=== PATIENT | female | born 1995 | race African-American/Black ===

== ENCOUNTER 2017-08-20 22:38 | Emergency (ER) | payer OTHER ==
--- NOTE | 2017-08-20 23:46 | RADIOLOGY REPORT (SQ) ---
EXAM DESCRIPTION: CHEST PA/LAT COMPLETED DATE/TIME: 08/20/2017 11:24 pm REASON FOR STUDY: chest pain COMPARISON: 01/28/2014 EXAM PARAMETERS: NUMBER OF VIEWS: two views TECHNIQUE: Digital Frontal and Lateral radiographic views of the chest acquired. RADIATION DOSE: NA LIMITATIONS: none FINDINGS: LUNGS AND PLEURA: No acute opacities, masses or pneumothorax. No pleural effusion. MEDIASTINUM AND HILAR STRUCTURES: No masses or contour abnormalities. HEART AND VASCULAR STRUCTURES: Heart normal size. No evidence for failure. BONES: No acute findings. HARDWARE: None in the chest. OTHER: No other significant finding. IMPRESSION: NO SIGNIFICANT RADIOGRAPHIC FINDING IN THE CHEST. TECHNICAL DOCUMENTATION: JOB ID: [id number] [id number] 2010 [employer]- All Rights Reserved Reading location - IP/workstation name: [email or web address]
--- NOTE | 2017-08-21 00:22 | ER Document Report ---
ED General - General Chief Complaint: Chest Pain Stated Complaint: CHEST PAIN Time Seen by Provider: 08/20/17 23:10 Notes: The patient is a 22-year-old female, no past medical history, presents with right upper chest pain and feeling 2 lumps in her breast over the past 2 days. Patient cannot remember her last menstrual period. She denies shortness of breath, leg swelling, hemoptysis, OCP use, dyspnea on exertion, worsening chest pain on exertion, back pain, numbness, tingling or injury. TRAVEL OUTSIDE OF THE [place] IN LAST 30 DAYS: No - Related Data Allergies/Adverse Reactions: No Known Allergies Allergy (Verified 08/21/17 00:27) Past Medical History - General Information source: Patient - Social History Smoking Status: Never Smoker Chew tobacco use (# tins/day): No Frequency of alcohol use: None Drug Abuse: None Family History: Reviewed & Not Pertinent Patient has suicidal ideation: No Patient has homicidal ideation: No Pulmonary Medical History: Reports: Hx Asthma Renal/ Medical History: Denies: Hx Peritoneal Dialysis - Immunizations Immunizations up to date: Yes Hx Diphtheria, Pertussis, Tetanus Vaccination: Yes Review of Systems - Review of Systems Notes: REVIEW OF SYSTEMS: CONSTITUTIONAL: -fevers, -chills EENT: -eye pain, -difficulty swallowing, -nasal congestion CARDIOVASCULAR: +chest pain, -syncope. RESPIRATORY: -cough, -SOB GASTROINTESTINAL: -abdominal pain, -nausea, -vomiting, -diarrhea GENITOURINARY: -dysuria, -hematuria MUSCULOSKELETAL: -back pain, -neck pain SKIN: -rash or skin lesions. HEMATOLOGIC: -easy bruising or bleeding. LYMPHATIC: -swollen, enlarged glands. NEUROLOGICAL: -altered mental status or loss of consciousness, -headache, - neurologic symptoms PSYCHIATRIC: -anxiety, -depression. ALL OTHER SYSTEMS REVIEWED AND NEGATIVE. Physical Exam - Vital signs Vitals: Resp Pulse Ox 17 97 08/20/17 23:05 08/20/17 23:05 - Notes Notes: PHYSICAL EXAMINATION: GENERAL: Well-appearing, well-nourished and in no acute distress. HEAD: Atraumatic, normocephalic. EYES: Pupils equal round and reactive to light, extraocular movements intact, sclera anicteric, conjunctiva are normal. ENT: nares patent, oropharynx clear without exudates. Moist mucous membranes. NECK: Normal range of motion, supple without lymphadenopathy BREAST EXAM (chaperoned by JAMES Petres): Two small lumps in right breast at 11 o' clock position LUNGS: Breath sounds clear to auscultation bilaterally and equal. No wheezes rales or rhonchi. HEART: Regular rate and rhythm without murmurs ABDOMEN: Soft, nontender, normoactive bowel sounds. No guarding, no rebound. No masses appreciated. EXTREMITIES: Normal range of motion, no pitting or edema. No cyanosis. NEUROLOGICAL: Cranial nerves grossly intact. Normal speech, normal gait. Normal sensory and motor exams. PSYCH: Normal mood, normal affect. SKIN: Warm, Dry, normal turgor, no rashes or lesions noted. Course - Re-evaluation Re-evalutation: Patient appears well. She is more concerned about her 2 small right upper breast lumps. Instructed her that this is most likely related to fibrocystic changes due to her age, only two days of symptoms and no history of breast cancer in her family. Will start her on anti-inflammatories and have her follow -up with her primary care physician for recheck of her symptoms. Chest x-ray and EKG obtained due to complaints of chest pain, but these do not show acute findings. Her HEART score is 0 and she is PERC negative. - Vital Signs Vital signs: Temp Pulse Resp BP Pulse Ox 98.5 F 15 107/78 97 08/21/17 00:35 08/21/17 00:35 08/21/17 00:36 08/21/17 00:35 - Diagnostic Test Radiology reviewed: Image reviewed, Reports reviewed Radiology results interpreted by me: CXR: NAD - EKG Interpretation by Me EKG shows normal: Sinus rhythm, Cort[place], Intervals, QRS Complexes, ST-T Waves Rate: Normal Discharge - Discharge Clinical Impression: Breast lump in female Chest pain Qualifiers: Chest pain type: unspecified Qualified Code(s): R07.9 - Chest pain, unspecified Condition: Stable Disposition: HOME, SELF-CARE Additional Instructions: Your breast lumps are most likely related to normal hormone changes, but have this rechecked by your primary care physician next week. You may take Motrin and use heating pads to help with any pain. CHEST PAIN OF UNCLEAR CAUSE: The exact cause of your chest pain isn't clear. Fortunately, there is no evidence of a dangerous medical condition. Further testing may be required to find the source of the pain. Most often, we find that this pain is coming from the chest wall -- the muscles or rib joints in the chest. But chest pain can come from the lung and lung lining, the esophagus, the heart valves or heart lining, and even the stomach or gallbladder. Rest. Eat lightly until the pain is gone. We may prescribe medicine for pain and inflammation. You should call the physician immediately if the pain radiates to the shoulder, jaw or arms; if you start to run a fever or develop a cough; or if you develop shortness of breath, or other new or alarming symptoms. NORMAL EXAM AND WORKUP: At this time, your examination and workup show no significant abnormality. No significant abnormal physical findings were noted. All laboratory, EKG, and imaging (x-ray, CT scans, ultrasound) studies that were ordered show no significant abnormality. Although your examination and all studies that were ordered showed no significant abnormal finding, there are no examinations and no studies that are 100% accurate. There is always the possibility that some abnormality could exist and not be detected with physical examination or within the limits and capabilities of laboratory and other studies. You should return or follow up as you were instructed on your visit today for further evaluation if your symptoms do not resolve. CHEST WALL PAIN: Your chest pain may be coming from the chest wall. This is often caused by straining the muscles or joints in the chest during physical activity, direct trauma, coughing, or vigorous vomiting. Persons with arthritis are especially prone to this type of pain, due to inflammation of the cartilage joints near the breast bone. Occasionally, no cause can be found. Rest from strenuous physical activity. This kind of chest pain is usually made worse by movement of the chest. Depending on the symptoms, we may prescribe medicine for pain, muscle relaxation, and antiinflammatory effects. If the pain is new, and seems to be due to muscle strain, cold packs can help. Otherwise, apply gentle warmth to the painful area for 15 minutes every hour or two. You should call contact the doctor immediately if things change. Further evaluation is needed if you develop a fever or cough, if the nature of the pain changes, or if you become short of breath. FOLLOW-UP CARE: If you have been referred to a physician for follow-up care, call the physician s office for an appointment as you were instructed or within the next two days. If you experience worsening or a significant change in your symptoms, notify the physician immediately or return to the Emergency Department at any time for re-evaluation. Referrals: [facility] [Outside] - Follow up as needed
[2017-08-21 00:50] VITALS: BP 107/78
--- NOTE | 2017-08-21 10:37 | EKG REPORT ---
SEVERITY:- NORMAL ECG - SINUS RHYTHM : Confirmed by: Darrius Escobedo 21-Aug-2017 10:36:48
== END 2017-08-21 00:40 | disposition home or self-care (01) ==
LOC: ER 22:38
DX: N63.10 Unspecified lump in the right breast, unspecified quadrant (principal); R07.9 Chest pain, unspecified
CPT/HCPCS: 71046; 81025; 93005; 93010; 99285

== ENCOUNTER → 2017-11-15 | Outpatient (CLI) | payer BC ==
[2017-11-15 19:25] LABS: BACTERIA (WET MOUNT) 4+ BACTERIA SEEN; EPITHELIALS (WET MOUNT) 3+ EPITHELIALS SEEN; T.VAGINALIS (WET MOUNT) NO TRICHOMONAS SEEN; WBCS (WET MOUNT) 2+ WBCS SEEN; YEAST (WET MOUNT) YEAST SEEN
[2017-11-15 20:48] LABS: CHLAM PCR NOT DETECTED (NOT DETECT); GON PCR NOT DETECTED (NOT DETECT)
== END ==
LOC: LAB 19:09
PROVIDERS: ATTEND Emergency Medicine
DX: N89.8 Other specified noninflammatory disorders of vagina (principal); R30.0 Dysuria
CPT/HCPCS: 87086; 87088; 87186; 87210; 87491; 87591

== ENCOUNTER 2017-11-16 00:36 | Emergency (ER) | payer BC ==
[2017-11-16] MEDS ORDERED: LIDOCAINE 1% INJ-PF (10 MG/ML) 30 ML SDV INFIL ONE (01:14)
[2017-11-16] MEDS ORDERED: AZITHROMYCIN 250 MG TABLET PO ONE (01:14)
[2017-11-16] MEDS ORDERED: CEFTRIAXONE INJ 250 MG VIAL IM ONE (01:14)
--- NOTE | 2017-11-16 01:17 | ER Document Report ---
ED GI/ - General Chief Complaint: Vaginal Discharge Stated Complaint: VAGINAL DISCOMFORT Time Seen by Provider: 11/16/17 01:14 Mode of Arrival: Ambulatory Information source: Patient TRAVEL OUTSIDE OF THE [place] IN LAST 30 DAYS: No - HPI Patient complains to provider of: Vaginal pain Notes: 11/16/17 01:15 Patient is here with complaints of vaginal itching and burning with urination the last several days. No vaginal discharge. Occasional she has left lower abdominal pain but denies any pain now. No fever. No nausea, vomiting, diarrhea. No chest pain shortness of breath. No rash. She is sexually active but with the same partner. She has a prior history of sexually transmitted infections. She denies any hematuria. No other complaints at this time. Normal menstrual period was November 06. - Related Data Allergies/Adverse Reactions: No Known Allergies Allergy (Verified 08/21/17 00:27) Past Medical History - Social History Smoking Status: Unknown if Ever Smoked Family History: Reviewed & Not Pertinent Pulmonary Medical History: Reports: Hx Asthma Renal/ Medical History: Denies: Hx Peritoneal Dialysis - Immunizations Immunizations up to date: Yes Hx Diphtheria, Pertussis, Tetanus Vaccination: Yes Review of Systems - Review of Systems -: Yes All other systems reviewed and negative Physical Exam - Notes Notes: GENERAL: alert, cooperative, nontoxic, no distress. HEAD: normocephalic, atraumatic EYES: conjunctiva pink without discharge, no external redness or swelling. EARS: no external swelling, no external redness NOSE: atraumatic, no external swelling MOUTH/THROAT: mucous membranes moist and pink, posterior pharynx without erythema, swelling, exudate. No trismus or drooling. NECK: soft, supple, full range of motion, no meningismus. CHEST: no distress, lungs clear and equal throughout. No wheezing, rales, rhonchi. CARDIAC: regular rate and rhythm, no murmur, normal capillary refill, normal pulses. No peripheral edema noted. ABDOMEN: Soft, nontender. BACK: full range of motion, no CVA tenderness. EXTREMITIES: full range of motion of all extremities. No redness, no swelling. NEURO: alert and oriented x 3, no focal deficits, full range of motion of all extremities. PYSCH: appropriate mood, affect. Patient is cooperative. SKIN: pink, warm, dry, no rash. : Performed with female signal operator linguist at the bedside. No external lesions. Thin white vaginal discharge present. Cervix was closed. No cervical lesions. No bleeding. No cervical motion tenderness, no adnexal tenderness or masses on Course - Re-evaluation Re-evalutation: 11/16/17 02:06 Patient is nontoxic-appearing with stable vitals. The patient is here with complaints of vaginal itching and irritation. On exam she has no significant abnormal findings. Urinalysis is negative. Her is negative. Wet prep is negative. Gonorrhea chlamydia cultures are currently pending. The patient was treated with Rocephin and Zithromax here in the emergency department. She will be discharged home with instruction to follow-up with her primary care doctor at the next available appointment for recheck. Follow-up sooner for worsening pain, fever, abdominal pain, persistent vomiting, or for any further concerns. She was instructed to follow-up with the health department or her primary care doctor for HIV and syphilis testing. The patient is noted to have elevated blood pressure during today's emergency department visit. The patient was informed of this finding. The patient was instructed that this may be related to pre-hypertension and requires further evaluation with a primary care provider. The patient has no hypertensive symptoms at this time. The patient's emergency department workup and current diagnosis were explained to the patient and or family. Follow-up instructions were provided. Medications if prescribed were discussed. Instructions for when to return to the emergency department including specific worrisome symptoms were discussed with the patient and/or family. Discharge - Discharge Clinical Impression: Vaginitis Qualifiers: Chronicity: acute Qualified Code(s): N76.0 - Acute vaginitis Condition: Stable Disposition: HOME, SELF-CARE Instructions: Vaginitis ([facility]) Additional Instructions: Follow-up with your primary care doctor, CORK PRESSING MACHINE OPERATOR or the health department for HIV and syphilis testing. Follow-up sooner for worsening pain, fever, numbness , tingling, weakness, persistent vomiting, or for any further concerns. Your blood pressure was elevated during today's visit. Have this rechecked with your doctor. Forms: Elevated Blood Pressure, Smoking Cessation Education Referrals: ESSENCE DODGE MD [ACTIVE STAFF] - Follow up as needed
[2017-11-16 01:48] LABS: RBCS (WET MOUNT) NO RBCS SEEN; T.VAGINALIS (WET MOUNT) NO TRICHOMONAS SEEN; WBCS (WET MOUNT) FEW WBCS SEEN; YEAST (WET MOUNT) NO YEAST SEEN
[2017-11-16 01:51] LABS: APPEARANCE,URINE CLEAR; BILIRUBIN,URINE NEGATIVE (NEGATIVE); COLOR,URINE STRAW; GLUCOSE, URINE NEGATIVE (NEGATIVE); KETONES,URINE NEGATIVE (NEGATIVE); LEUKOCYTE ESTERASE,URINE NEGATIVE (NEGATIVE); NITRITE,URINE NEGATIVE (NEGATIVE); PROTEIN,URINE NEGATIVE (NEGATIVE); URINE SPECIFIC GRAVITY 1.004; UROBILINOGEN,URINE NEGATIVE mg/dL (<2.0)
[2017-11-16 03:15] LABS: CHLAM PCR NOT DETECTED (NOT DETECT); GON PCR NOT DETECTED (NOT DETECT)
[2017-11-16 03:21] VITALS: BP 127/55
== END 2017-11-16 03:05 | disposition home or self-care (01) ==
LOC: ER 00:36
DX: N76.0 Acute vaginitis (principal); R30.0 Dysuria
CPT/HCPCS: 99283; 96372; 87210; 81025; 81001; 87491; 87591; J3490; J0696

== ENCOUNTER 2018-01-29 12:15 | Emergency (ER) | payer BC ==
[2018-01-29 12:30] VITALS: BP 127/72
[2018-01-29 12:49] LABS: APPEARANCE,URINE CLEAR; BILIRUBIN,URINE NEGATIVE (NEGATIVE); COLOR,URINE YELLOW; GLUCOSE, URINE NEGATIVE (NEGATIVE); KETONES,URINE NEGATIVE (NEGATIVE); LEUKOCYTE ESTERASE,URINE NEGATIVE (NEGATIVE); NITRITE,URINE NEGATIVE (NEGATIVE); PROTEIN,URINE NEGATIVE (NEGATIVE); URINE SPECIFIC GRAVITY 1.027; UROBILINOGEN,URINE NEGATIVE mg/dL (<2.0)
--- NOTE | 2018-01-29 13:11 | ER Document Report ---
ED GI/ - General Chief Complaint: Abdominal Pain Stated Complaint: ABDOMINAL PAIN,VAGINAL IRRITATION Time Seen by Provider: 01/29/18 13:06 Notes: Chief complaint: abdominal pain: Abdominal pain History of complain:( obtained from----patient) 22 years old female presents with left lower quadrant abdominal pain and discomfort for the last 3 weeks, crampy in nature. Did not have any bowel movement for the last 2 weeks. No nausea vomiting. Had some dysuria no frequency urgency. Denies any other constitutional symptoms Onset: Gradual Duration: 3 weeks Severity: Mild to moderate Quality: Crampy Context: As above Exacerbating factor and relieving factors: None REVIEW OF SYSTEMS: CONSTITUTIONAL : Denies fever, chills, or sweats. Denies recent illness. EENT: Denies eye, ear, throat, or mouth pain or symptoms. Denies nasal or sinus congestion or discharge. Denies throat, tongue, or mouth swelling or difficulty swallowing. CARDIOVASCULAR: Denies chest pain. Denies palpitations or racing or irregular heart beat. Denies ankle edema. RESPIRATORY: Denies cough, cold, or chest congestion. Denies shortness of breath, difficulty breathing, or wheezing. GASTROINTESTINAL: Denies distention. Denies nausea, vomiting, or diarrhea. Denies blood in vomitus, stools, or per rectum. Denies black, tarry stools. Denies constipation. GENITOURINARY: Denies difficulty urinating, painful urination, burning, frequency, blood in urine, or discharge. FEMALE GENITOURINARY: Denies vaginal bleeding, heavy or abnormal periods, irregular periods. Denies vaginal discharge or odor. MUSCULOSKELETAL: Denies back or neck pain or stiffness. Denies joint pain or swelling. SKIN: Denies rash, lesions or sores. HEMATOLOGIC : Denies easy bruising or bleeding. LYMPHATIC: Denies swollen, enlarged glands. NEUROLOGICAL: Denies confusion or altered mental status. Denies passing out or loss of consciousness. Denies dizziness or lightheadedness. Denies headache. Denies weakness or paralysis or loss of use of either side. Denies problems with gait or speech. Denies sensory loss, numbness, or tingling. Denies seizures. PSYCHIATRIC: Denies anxiety or stress. Denies depression, suicidal ideation, or homicidal ideation. ALL OTHER SYSTEMS REVIEWED AND NEGATIVE. PHYSICAL EXAMINATION: GENERAL: Well-appearing, well-nourished and in no acute distress. Obesity HEAD: Atraumatic, normocephalic. EYES: Pupils equal round and reactive to light, extraocular movements intact, conjunctiva are normal. ENT: Nares patent, oropharynx clear without exudates. Moist mucous membranes. NECK: Normal range of motion, supple without lymphadenopathy LUNGS: Breath sounds clear to auscultation bilaterally and equal. No wheezes rales or rhonchi. HEART: Regular rate and rhythm without murmurs ABDOMEN: Soft, nontender, nondistended abdomen. No guarding, no rebound. No masses appreciated. Female : deferred Musculoskeletal: Normal range of motion, no pitting or edema. No cyanosis. NEUROLOGICAL: Cranial nerves grossly intact. Normal speech, normal gait. Normal sensory, motor exams PSYCH: Normal mood, normal affect. SKIN: Warm, Dry, normal turgor, no rashes or lesions noted. Dictation was performed using [employer] voice recognition software TRAVEL OUTSIDE OF THE [place] IN LAST 30 DAYS: No - HPI Notes: 01/29/18 13:10 Dictated - Related Data Allergies/Adverse Reactions: No Known Allergies Allergy (Verified 01/29/18 12:57) Past Medical History - Social History Smoking Status: Never Smoker Chew tobacco use (# tins/day): No Frequency of alcohol use: None Drug Abuse: None Lives with: Family Family History: Reviewed & Not Pertinent Patient has suicidal ideation: No Patient has homicidal ideation: No Pulmonary Medical History: Reports: Hx Asthma Renal/ Medical History: Denies: Hx Peritoneal Dialysis - Immunizations Immunizations up to date: Yes Hx Diphtheria, Pertussis, Tetanus Vaccination: Yes Review of Systems - Review of Systems Notes: Dictated Physical Exam - Vital signs Vitals: Temp Pulse Resp BP Pulse Ox 98.2 F 72 18 127/72 H 100 01/29/18 12:29 01/29/18 12:29 01/29/18 12:29 01/29/18 12:29 01/29/18 12:29 - Notes Notes: Dictated Course - Vital Signs Vital signs: Temp Pulse Resp BP Pulse Ox 98.2 F 72 18 127/72 H 100 01/29/18 12:29 01/29/18 12:29 01/29/18 12:29 01/29/18 12:29 01/29/18 12:29 Discharge - Discharge Clinical Impression: Constipation by delayed colonic transit Abdominal pain Qualifiers: Abdominal location: left lower quadrant Qualified Code(s): R10.32 - Left lower quadrant pain Condition: Fair Disposition: HOME, SELF-CARE Instructions: Bulk Laxatives Prescriptions: Dicyclomine HCl [Bentyl 10 mg Capsule] 1 cap PO TID #30 cap Lactulose 20 gm PO BID #120 ml Referrals: FAUSTINO DIA TIME PIECE REPAIRER [Primary Care Provider] - Follow up as needed
== END 2018-01-29 14:02 | disposition home or self-care (01) ==
LOC: ER 12:15
DX: K59.01 Slow transit constipation (principal); R10.32 Left lower quadrant pain
CPT/HCPCS: 81001; 81025; 99284

== ENCOUNTER 2018-03-10 10:29 | Emergency (ER) | payer BC ==
--- NOTE | 2018-03-10 10:42 | ER Document Report ---
HPI - HPI Patient complains to provider of: Dysuria Onset: This morning Onset/Duration: Gradual Quality of pain: Burning Pain Level: 3 Context: Patient presents complaining of pain with urination that started this morning. Patient also complains of left lower lateral side tenderness off and on this morning. Patient without any fever, nausea, vomiting or diarrhea. Patient denies any concerns about any sexually transmitted infection. No vaginal bleeding or discharge. Patient denies any concerns about . Associated Symptoms: Other - Dysuria. denies: Nonproductive cough, Fever, Nausea, Vomiting Exacerbated by: Denies Relieved by: Denies Similar symptoms previously: Yes Recently seen / treated by doctor: No - ROS ROS below otherwise negative: Yes Systems Reviewed and Negative: Yes All other systems reviewed and negative - CONSTITUTIONAL Constitutional: DENIES: Fever, Chills - GASTROINTESTINAL Gastrointestinal: REPORTS: Abdominal Pain. DENIES: Nausea, Patient vomiting - URINARY Urinary: REPORTS: Dysuria. DENIES: Frequency - REPRODUCTIVE Reproductive: DENIES: : - MUSCULOSKELETAL Musculoskeletal: DENIES: Back Pain - DERM Skin Color: Normal Skin Problems: None Past Medical History - General Information source: Patient - Social History Smoking Status: Never Smoker Frequency of alcohol use: None Drug Abuse: None Occupation: Call center Family History: Reviewed & Not Pertinent Pulmonary Medical History: Reports: Hx Asthma Renal/ Medical History: Denies: Hx Peritoneal Dialysis Surgical Hx: Negative - Immunizations Immunizations up to date: Yes Hx Diphtheria, Pertussis, Tetanus Vaccination: Yes Vertical Provider Document - CONSTITUTIONAL Agree With Documented VS: Yes Exam Limitations: No Limitations General Appearance: WD/WN, No Apparent Distress - INFECTION CONTROL TRAVEL OUTSIDE OF THE [place] IN LAST 30 DAYS: No - HEENT HEENT: Atraumatic, Normocephalic - NECK Neck: Normal Inspection, Supple - RESPIRATORY Respiratory: Breath Sounds Normal, No Respiratory Distress - CARDIOVASCULAR Cardiovascular: Regular Rate, Regular Rhythm - GI/ABDOMEN Gastrointestinal: Abdomen Soft, Abdomen Tender - Mild tenderness left lower lateral pelvic area, No Organomegaly, Normal Bowel Sounds. negative: Abdominal Guarding - BACK Back: Normal Inspection. negative: CVA Tenderness-Right, CVA Tenderness-Left - MUSCULOSKELETAL/EXTREMETIES Musculoskeletal/Extremeties: MAEW, FROM - NEURO Level of Consciousness: Awake, Alert, Appropriate Motor/Sensory: No Motor Deficit - DERM Integumentary: Warm, Dry, No Rash Course - Re-evaluation Re-evalutation: 03/10/18 11:20 Patient's urinalysis reviewed, findings consistent with UTI, no concern for pyelonephritis at this time. Patient afebrile nontoxic in appearance. - Laboratory Laboratory results interpreted by me: 03/10/18 11:20 Labs- Entire Visit 03/10/18 10:49 Urine Color YELLOW Urine Appearance CLOUDY Urine pH 6.0 Ur Specific Rock 1.009 Urine Protein NEGATIVE Urine Glucose (UA) NEGATIVE Urine Ketones NEGATIVE Urine Blood MODERATE H Urine Nitrite NEGATIVE Urine Bilirubin NEGATIVE Urine Urobilinogen NEGATIVE Ur Leukocyte Esterase LARGE H Urine WBC (Auto) 121 Urine RBC (Auto) 1 Urine Bacteria (Auto) TRACE Squamous Epi Cells Auto 2 Urine Mucus (Auto) RARE Urine Ascorbic Acid NEGATIVE Urine HCG, Qual NEGATIVE Discharge - Discharge Clinical Impression: UTI (urinary tract infection) Qualifiers: Urinary tract infection type: site unspecified Hematuria presence: with hematuria Qualified Code(s): N39.0 - Urinary tract infection, site not specified ; R31.9 - Hematuria, unspecified; R31.9 - Hematuria, unspecified Condition: Stable Disposition: HOME, SELF-CARE Instructions: Urinary Tract Infection ([facility]), Urinary Anesthetic Agent ([facility]), Cephalexin ([facility]) Additional Instructions: Return immediately for any new or worsening symptoms Followup with your primary care provider, call tomorrow to make a followup appointment Prescriptions: Cephalexin Monohydrate [Keflex 500 mg Capsule] 500 mg PO Q6H 5 Days capsule Phenazopyridine HCl [Pyridium 200 mg Tablet] 200 mg PO TID #15 tablet Referrals: FAUSTINO DIA NP [Primary Care Provider] - Follow up as needed
[2018-03-10 11:11] LABS: APPEARANCE,URINE CLOUDY; BILIRUBIN,URINE NEGATIVE (NEGATIVE); COLOR,URINE YELLOW; GLUCOSE, URINE NEGATIVE (NEGATIVE); KETONES,URINE NEGATIVE (NEGATIVE); LEUKOCYTE ESTERASE,URINE LARGE (NEGATIVE); NITRITE,URINE NEGATIVE (NEGATIVE); PROTEIN,URINE NEGATIVE (NEGATIVE); URINE SPECIFIC GRAVITY 1.009; UROBILINOGEN,URINE NEGATIVE mg/dL (<2.0)
[2018-03-10] MEDS ORDERED: CEPHALEXIN 500 MG CAPSULE PO ONE (11:19)
[2018-03-10] MEDS ORDERED: PHENAZOPYRIDINE HCL 200 MG TABLET PO ONE (11:19)
[2018-03-10 11:39] VITALS: BP 116/69
== END 2018-03-10 11:39 | disposition home or self-care (01) ==
LOC: ER 10:29
DX: N39.0 Urinary tract infection, site not specified (principal); R31.9 Hematuria, unspecified; J45.909 Unspecified asthma, uncomplicated
CPT/HCPCS: 99283; 81025; 81001; J3490

== ENCOUNTER 2018-05-01 14:16 | Emergency (ER) | payer BC ==
--- NOTE | 2018-05-01 15:29 | ER Document Report ---
ED Medical Screen (RME) - General Chief Complaint: Abdominal Pain Stated Complaint: ABDOMINAL PAIN,VOMITING Time Seen by Provider: 05/01/18 15:23 Mode of Arrival: Ambulatory Information source: Patient Notes: Patient is an otherwise healthy 22-year-old female who presents with chief complaint of low abdominal pain, dysuria, and milky white vaginal discharge since Friday. Patient denies any nausea, vomiting or diarrhea. Patient denies any fever. Exam: Abdomen soft, mildly tender to left suprapubic area. No CVA tenderness. I have greeted and performed a rapid initial assessment of this patient. A comprehensive ED assessment and evaluation of the patient, analysis of test results and completion of the medical decision making process will be conducted by additional ED providers. Dictation of this chart was performed using voice recognition software; therefore, there may be some unintended grammatical errors. TRAVEL OUTSIDE OF THE [place] IN LAST 30 DAYS: No - Related Data Allergies/Adverse Reactions: No Known Allergies Allergy (Verified 03/10/18 10:30) Past Medical History Pulmonary Medical History: Reports: Hx Asthma Renal/ Medical History: Denies: Hx Peritoneal Dialysis - Immunizations Immunizations up to date: Yes Hx Diphtheria, Pertussis, Tetanus Vaccination: Yes Physical Exam - Vital signs Vitals: Temp Pulse Resp BP Pulse Ox 98.2 F 70 20 132/74 H 99 05/01/18 14:40 05/01/18 14:40 05/01/18 14:40 05/01/18 14:40 05/01/18 14:40 Course - Vital Signs Vital signs: Temp Pulse Resp BP Pulse Ox 98.2 F 70 20 132/74 H 99 05/01/18 14:40 05/01/18 14:40 05/01/18 14:40 05/01/18 14:40 05/01/18 14:40 Doctor's Discharge - Discharge Referrals: FAUSTINO DIA NP [Primary Care Provider] - Follow up as needed
[2018-05-01 16:15] LABS: APPEARANCE,URINE CLEAR; BILIRUBIN,URINE NEGATIVE (NEGATIVE); COLOR,URINE YELLOW; GLUCOSE, URINE NEGATIVE (NEGATIVE); KETONES,URINE TRACE mg/dL (NEGATIVE); LEUKOCYTE ESTERASE,URINE NEGATIVE (NEGATIVE); NITRITE,URINE NEGATIVE (NEGATIVE); PROTEIN,URINE NEGATIVE (NEGATIVE); URINE SPECIFIC GRAVITY 1.017; UROBILINOGEN,URINE NEGATIVE mg/dL (<2.0)
[2018-05-01] MEDS ORDERED: AZITHROMYCIN 1 GM SUSP PACKET PO ONE (17:22)
--- NOTE | 2018-05-01 17:22 | ER Document Report ---
ED GI/ - General Chief Complaint: Abdominal Pain Stated Complaint: ABDOMINAL PAIN,VOMITING Time Seen by Provider: 05/01/18 15:23 Mode of Arrival: Ambulatory Notes: Patient is a 22-year-old female presenting to the emergency department complaining of vaginal discharge starting on Friday. Patient states vaginal discharge is white and thick in nature denies any itching states discharge is malodorous. Patient also states she has some dysuria. Patient states she has had intermittent left lower abdominal pain for the last couple of months. States her primary care provider was going to order an outpatient ultrasound to rule out ovarian cyst but she has not gotten that done yet. Patient states she did vomit twice this morning, denies fever, URI symptoms, diarrhea. Patient states she has been able to eat and drink since vomiting episodes. Denies any nausea at this time. Past medical history: None medications: None Allergies: None Patient denies smoking, denies illicit drug use, denies EtOH use. TRAVEL OUTSIDE OF THE [place] IN LAST 30 DAYS: No - Related Data Allergies/Adverse Reactions: No Known Allergies Allergy (Verified 03/10/18 10:30) Past Medical History - General Information source: Patient - Social History Smoking Status: Former Smoker Lives with: Family Family History: Reviewed & Not Pertinent Patient has suicidal ideation: No Patient has homicidal ideation: No Pulmonary Medical History: Reports: Hx Asthma Renal/ Medical History: Denies: Hx Peritoneal Dialysis - Immunizations Immunizations up to date: Yes Hx Diphtheria, Pertussis, Tetanus Vaccination: Yes Review of Systems - Review of Systems Constitutional: See HPI EENT: No symptoms reported Cardiovascular: No symptoms reported Respiratory: No symptoms reported Gastrointestinal: See HPI Genitourinary: See HPI Female Genitourinary: See HPI Musculoskeletal: No symptoms reported Skin: No symptoms reported Hematologic/Lymphatic: No symptoms reported Neurological/Psychological: No symptoms reported Physical Exam - Vital signs Vitals: Temp Pulse Resp BP Pulse Ox 98.2 F 70 20 132/74 H 99 05/01/18 14:40 05/01/18 14:40 05/01/18 14:40 05/01/18 14:40 05/01/18 14:40 - Notes Notes: GENERAL: Alert, interacts well. No acute distress. HEAD: Normocephalic, atraumatic. EYES: Pupils equal, round, and reactive to light. Extraocular movements intact. ENT: Oral mucosa moist, tongue midline. NECK: Full range of motion. Supple. Trachea midline. LUNGS: Clear to auscultation bilaterally, no wheezes, rales, or rhonchi. No respiratory distress. HEART: Regular rate and rhythm. No murmur ABDOMEN: Soft, non-tender. Non-distended. Bowel sounds present in all 4 quadrants. Currently no left lower abdominal pain. EXTREMITIES: Moves all 4 extremities spontaneously. No edema, normal radial and dorsalis pedis pulses bilaterally. No cyanosis. BACK: no cervical, thoracic, lumbar midline tenderness. No saddle anesthesia, normal distal neurovascular exam. NEUROLOGICAL: Alert and oriented x3. Normal speech. cranial nerves II through XII grossly intact PSYCH: Normal affect, normal mood. SKIN: Warm, dry, normal turgor. No rashes or lesions noted. Pelvic: Pelvic reveals malodorous scant white discharge. No adnexal tenderness , no cervical motion tenderness. Course - Re-evaluation Re-evalutation: 05/01/18 18:24 Wet mount reveals no trichomonas, no bacterial vaginosis, no yeast seen. Discussed prophylactic gonorrhea and Chlamydia treatment with patient at bedside. She requests treatment at this time. Patient currently is without left lower quadrant pain. No adnexal tenderness upon pelvic exam, no ultrasound indicated at this time. Discussed need to follow-up with primary care provider and then ELECTRICAL CHECKOUT MECHANIC. Return precautions discussed Vitals reviewed: Nursing notes reviewed. - Vital Signs Vital signs: Temp Pulse Resp BP Pulse Ox 98.2 F 70 20 132/74 H 99 05/01/18 14:40 05/01/18 14:40 05/01/18 14:40 05/01/18 14:40 05/01/18 14:40 - Laboratory Laboratory results interpreted by me: 05/01/18 14:00 Urine Ketones TRACE H Urine Ascorbic Acid 40 H Discharge - Discharge Clinical Impression: Vaginal discharge, STD exposure Condition: Stable Disposition: HOME, SELF-CARE Instructions: Vaginitis ([facility]) Additional Instructions: As we discussed you have been seen and treated in the emergency department for vaginal discharge. Your trichomonas, yeast, bacterial vaginosis BACK negative. As we discussed your gonorrhea and chlamydia will not come back for a few hours. You had been prophylactically treated in the emergency room. Please call medical records to get your results. Please return to the emergency room for any other concerning symptoms. Please make an appointment with your primary care provider or ELECTRICAL CHECKOUT MECHANIC in the next 24-48 hours. Referrals: FAUSTINO DIA NP [Primary Care Provider] - Follow up as needed
[2018-05-01] MEDS ORDERED: CEFTRIAXONE INJ 250 MG VIAL IM ONE (17:23)
[2018-05-01 17:40] LABS: T.VAGINALIS (WET MOUNT) NO TRICHOMONAS SEEN; WBCS (WET MOUNT) 1+ WBCS SEEN; YEAST (WET MOUNT) NO YEAST SEEN
[2018-05-01 18:42] VITALS: BP 135/79
[2018-05-01 19:07] LABS: CHLAM PCR DETECTED (NOT DETECT); GON PCR DETECTED (NOT DETECT)
== END 2018-05-01 18:33 | disposition home or self-care (01) ==
LOC: ER 14:16
DX: N89.8 Other specified noninflammatory disorders of vagina (principal); Z20.2 Contact with and (suspected) exposure to infections with a predominantly sexual mode of transmission; R30.0 Dysuria; R10.32 Left lower quadrant pain; R11.11 Vomiting without nausea; J45.909 Unspecified asthma, uncomplicated; Z87.891 Personal history of nicotine dependence
CPT/HCPCS: 99284; 96372; 87086; 87210; 81025; 81001; 87491; 87591; Q0144; J0696

== ENCOUNTER 2018-05-31 18:42 | Emergency (ER) | payer BC ==
--- NOTE | 2018-05-31 19:21 | ER Document Report ---
ED Medical Screen (RME) - General Chief Complaint: Vaginal Discharge Stated Complaint: ABDOMINAL PAIN, BURNING WITH URINATION Time Seen by Provider: 05/31/18 19:15 Mode of Arrival: Ambulatory Information source: Patient, [facility] Records Notes: 23-year-old female presents with 1 week of dysuria and vaginal discharge. Recently diagnosed with gonorrhea and chlamydia in April 2018. States she did receive treatment. Unclear whether her partner received treatment and she is still sexually active with him. Intermittently uses protection. States her last menstrual period only lasted 2 days. I have greeted and performed a rapid initial assessment of this patient. A comprehensive ED assessment and evaluation of the patient, analysis of test results and completion of medical decision making process we will be contacted by additional ED providers. PHYSICAL EXAMINATION: Vital signs reviewed-within normal limits GENERAL: Well-appearing, well-nourished and in no acute distress. LUNGS: No respiratory distress Musculoskeletal: Normal range of motion NEUROLOGICAL: Normal speech, normal gait. PSYCH: Normal mood, normal affect. SKIN: Warm, Dry, normal turgor, no rashes or lesions noted. TRAVEL OUTSIDE OF THE [place] IN LAST 30 DAYS: No - HPI Onset: Last week Onset/Duration: Gradual Associated Symptoms: Abdominal pain. denies: Diarrhea, Fever, Nausea Exacerbated by: Denies Relieved by: Denies Similar symptoms previously: Yes Recently seen / treated by doctor: Yes - Related Data Smoking: Non-smoker Frequency of alcohol use: None Drug Abuse: None Allergies/Adverse Reactions: No Known Allergies Allergy (Verified 03/10/18 10:30) Past Medical History Pulmonary Medical History: Reports: Hx Asthma Renal/ Medical History: Denies: Hx Peritoneal Dialysis - Immunizations Immunizations up to date: Yes Hx Diphtheria, Pertussis, Tetanus Vaccination: Yes Physical Exam - Vital signs Vitals: Temp Pulse Resp BP Pulse Ox 98.5 F 75 20 125/61 99 05/31/18 18:52 05/31/18 18:52 05/31/18 18:52 05/31/18 18:52 05/31/18 18:52 Course - Vital Signs Vital signs: Temp Pulse Resp BP Pulse Ox 98.5 F 75 20 125/61 99 05/31/18 18:52 05/31/18 18:52 05/31/18 18:52 05/31/18 18:52 05/31/18 18:52 Doctor's Discharge - Discharge Referrals: FAUSTINO DIA DESIGN CELL ENGINEER [Primary Care Provider] - Follow up as needed
--- NOTE | 2018-05-31 20:15 | ER Document Report ---
ED General - General Chief Complaint: Vaginal Discharge Stated Complaint: ABDOMINAL PAIN, BURNING WITH URINATION Time Seen by Provider: 05/31/18 19:15 Mode of Arrival: Ambulatory Notes: Patient is a 23-year-old female who presents to the emergency department with a chief complaint of dysuria. She also has lower abdominal pain. She notes vaginal discharge, and states it is a milky, sticky consistency. She was treated for gonorrhea and chlamydia and April. Her partner was supposed to be checked for gonorrhea and chlamydia, but she does not know if he was checked. They are sexually active. She is also concerned about a possible . Her last menstrual cycle was April 20. TRAVEL OUTSIDE OF THE [place] IN LAST 30 DAYS: No - Related Data Allergies/Adverse Reactions: No Known Allergies Allergy (Verified 03/10/18 10:30) Past Medical History - General Information source: Patient, [facility] Records - Social History Smoking Status: Never Smoker Chew tobacco use (# tins/day): No Frequency of alcohol use: None Drug Abuse: None Family History: Reviewed & Not Pertinent Patient has suicidal ideation: No Patient has homicidal ideation: No Pulmonary Medical History: Reports: Hx Asthma Renal/ Medical History: Denies: Hx Peritoneal Dialysis - Immunizations Immunizations up to date: Yes Hx Diphtheria, Pertussis, Tetanus Vaccination: Yes Review of Systems - Review of Systems Notes: REVIEW OF SYSTEMS: CONSTITUTIONAL : Denies recent illness. Denies recent unintentional weight loss. Denies fever, chills, or sweats. EENT: Denies eye, ear, throat, or mouth pain, discharge, or symptoms. Denies nasal or sinus congestion. CARDIOVASCULAR: Denies chest pain. RESPIRATORY: Denies shortness of breath, cough, congestion, difficulty breathing , or wheezing. GASTROINTESTINAL: Denies nausea, vomiting, and diarrhea. Denies abdominal pain. Denies constipation. Last BM: GENITOURINARY: See HPI FEMALE GENITOURINARY: See HPI MUSCULOSKELETAL: Denies neck and back pain. Denies joint pain or swelling. SKIN: Denies rash, itchiness, or lesions HEMATOLOGIC : Denies easy bruising or bleeding. LYMPHATIC: Denies swollen, painful, enlarged glands. NEUROLOGICAL: Denies no numbness or tingling denies weakness. Denies headache. Denies altered mental status. Denies alteration in speech. PSYCHIATRIC: Denies stress, anxiety, alteration in sleep patterns, or depression. All other systems reviewed and negative. Physical Exam - Vital signs Vitals: Temp Pulse Resp BP Pulse Ox 98.5 F 75 20 125/61 99 05/31/18 18:52 05/31/18 18:52 05/31/18 18:52 05/31/18 18:52 05/31/18 18:52 - Notes Notes: PHYSICAL EXAMINATION: GENERAL: Appears well, healthy, well-nourished, no acute distress. HEAD: Normocephalic, atraumatic. EYES: PERRL, conjunctiva normal, all extraocular movements intact, sclera nonicteric ENT: Moist mucous membranes. NECK: Supple, no noticeable swelling, redness, rash. Normal range of motion. LUNGS: Equal breath sounds bilaterally and clear to auscultation. No wheezes rales or rhonchi. CARDIOVASCULAR: S1-S2, regular rate, regular rhythm. Radial pulses 2+, normal. ABDOMEN: Normoactive bowel sounds. Soft, nontender, no guarding, no rebound tenderness, and no masses palpated. EXTREMITIES: Normal strength and range of motion, no pitting or edema. No cyanosis. NEUROLOGICAL: Moves all extremities upon command. Strength 5/5 in all extremities. PSYCH: Normal mood, normal affect. SKIN: Warm, dry. No rash, lesions, ulcerations noted. Normal skin turgor. TOWER TRUCK DRIVER: White discharge noted at cervix. Course - Re-evaluation Re-evalutation: 05/31/18 21:51 Patient's hCG is negative. Her wet mount shows 4+ bacteria and 4+ leukocytes. This is most consistent with a pelvic infection. I suspect her significant other was not treated for gonorrhea and chlamydia, therefore she continued to have her symptoms. She does have moderate leukocytes in her urine, but I suspect this is due to to the fact that she has a pelvic infection. She will be treated with a gram of azithromycin and 250 mg of Rocephin for gonorrhea and chlamydia treatment. I also sent her home with Flagyl for possible bacterial vaginosis. She is not complaining of abdominal pain, I do not suspect she has an ovarian torsion, ovarian cyst, or any other life-threatening etiology at this time. Verbal discharge instructions were given to the patient. I had a long extensive talk with her about making sure that her partner gets treated before she has sex with him. She verbalized understanding. She is stable for discharge. - Vital Signs Vital signs: Temp Pulse Resp BP Pulse Ox 99.0 F 68 18 106/82 100 05/31/18 22:51 05/31/18 22:51 05/31/18 22:51 05/31/18 22:51 05/31/18 22:51 - Laboratory Laboratory results interpreted by me: 05/31/18 05/31/18 18:55 20:15 Ur Leukocyte Esterase MODERATE H N.gonorrhoeae DNA (PCR) DETECTED H Discharge - Discharge Clinical Impression: Dysuria, Pelvic infection Condition: Stable Disposition: HOME, SELF-CARE Additional Instructions: You are seen in the emergency department today for burning during urination. You do have a pelvic infection. You have been treated for gonorrhea and chlamydia. You also have been sent home with medication for bacterial vaginosis. Please finish all this medication, even if you feel better. DO NOT HAVE SEX FOR 1 WEEK AND DO NOT HAVE SEX WITH YOUR PARTNER UNTIL THEY ARE TREATED FOR GONORRHEA AND CHLAMYDIA. If you develop a fever greater than 100.4 F, have chills, have worsening abdominal pain, or have any symptoms that are worrisome to you, please return to the emergency department. Prescriptions: Metronidazole [Flagyl 500 mg Tablet] 500 mg PO Q6H #28 tablet Referrals: FAUSTINO DIA NP [Primary Care Provider] - Follow up as needed
[2018-05-31 20:52] LABS: APPEARANCE,URINE TURBID; BILIRUBIN,URINE NEGATIVE (NEGATIVE); COLOR,URINE DARK YELLOW; GLUCOSE, URINE NEGATIVE (NEGATIVE); KETONES,URINE NEGATIVE (NEGATIVE); LEUKOCYTE ESTERASE,URINE MODERATE (NEGATIVE); NITRITE,URINE NEGATIVE (NEGATIVE); PROTEIN,URINE NEGATIVE (NEGATIVE); URINE SPECIFIC GRAVITY 1.024; UROBILINOGEN,URINE NEGATIVE mg/dL (<2.0)
[2018-05-31 21:28] LABS: BACTERIA (WET MOUNT) 4+ BACTERIA SEEN; EPITHELIALS (WET MOUNT) 4+ EPITHELIALS SEEN; RBCS (WET MOUNT) NO RBCS SEEN; T.VAGINALIS (WET MOUNT) NO TRICHOMONAS SEEN; WBCS (WET MOUNT) 4+ WBCS SEEN; YEAST (WET MOUNT) NO YEAST SEEN
[2018-05-31] MEDS ORDERED: AZITHROMYCIN 250 MG TABLET PO ONE (21:49)
[2018-05-31] MEDS ORDERED: LIDOCAINE 1% INJ-PF (10 MG/ML) 30 ML SDV INJ ONE (21:50)
[2018-05-31] MEDS ORDERED: METRONIDAZOLE 500 MG TABLET PO ONE (21:50)
[2018-05-31 22:06] LABS: CHLAM PCR NOT DETECTED (NOT DETECT); GON PCR DETECTED (NOT DETECT)
[2018-05-31] MEDS ORDERED: CEFTRIAXONE INJ 250 MG VIAL IM ONE (22:47)
[2018-05-31 23:03] VITALS: BP 106/82
== END 2018-05-31 23:10 | disposition home or self-care (01) ==
LOC: ER 18:42
DX: N73.9 Female pelvic inflammatory disease, unspecified (principal); R30.0 Dysuria; N89.8 Other specified noninflammatory disorders of vagina; R10.30 Lower abdominal pain, unspecified
CPT/HCPCS: 99283; 96372; 87086; 87210; 81025; 81001; 87491; 87591; J3490; J0696

== ENCOUNTER 2018-06-17 15:45 | Emergency (ER) | payer BC ==
--- NOTE | 2018-06-17 17:57 | ER Document Report ---
ED Medical Screen (RME) - General Chief Complaint: Vaginal Discharge Stated Complaint: PELVIC PAIN, VAGINAL DISCHARGE Time Seen by Provider: 06/17/18 17:53 Mode of Arrival: Ambulatory Information source: Patient, [facility] Records Notes: 23-year-old female presents with complaint of pelvic pain, vaginal discharge. She was seen here on May 31 and diagnosed with gonorrhea and received Rocephin, azithromycin and Flagyl at that time. She states pain has worsened since then. She also complains of pain with intercourse. Patient states that her partner was treated at the same time as she was and that she did wait 1 week prior to engaging in intercourse and when they did condoms were used. I have greeted and performed a rapid initial assessment of this patient. A comprehensive ED assessment and evaluation of the patient, analysis of test results and completion of medical decision making process we will be contacted by additional ED providers. PHYSICAL EXAMINATION: Vital signs reviewed-afebrile GENERAL: Well-appearing, well-nourished and in no acute distress. LUNGS: No respiratory distress Musculoskeletal: Normal range of motion NEUROLOGICAL: Normal speech, normal gait. PSYCH: Normal mood, normal affect. SKIN: Warm, Dry, normal turgor, no rashes or lesions noted. TRAVEL OUTSIDE OF THE [place] IN LAST 30 DAYS: No - HPI Onset: Other Onset/Duration: Persistent Quality of pain: Cramping Severity: Moderate Associated Symptoms: Abdominal pain Exacerbated by: Other - [place] Relieved by: Denies Similar symptoms previously: Yes Recently seen / treated by doctor: Yes - May 31, 2018 - Related Data Smoking: Non-smoker Frequency of alcohol use: None Drug Abuse: None Allergies/Adverse Reactions: No Known Allergies Allergy (Verified 06/17/18 15:46) Past Medical History - General Last Menstrual Period: 05/17/18 - Social History Chew tobacco use (# tins/day): No Frequency of alcohol use: None Drug Abuse: None Pulmonary Medical History: Reports: Hx Asthma Renal/ Medical History: Denies: Hx Peritoneal Dialysis - Immunizations Immunizations up to date: Yes Hx Diphtheria, Pertussis, Tetanus Vaccination: Yes Physical Exam - Vital signs Vitals: Temp Pulse Resp BP Pulse Ox 98.9 F 67 16 138/80 H 100 06/17/18 16:19 06/17/18 16:19 06/17/18 16:19 06/17/18 16:19 06/17/18 16:19 Course - Vital Signs Vital signs: Temp Pulse Resp BP Pulse Ox 98.9 F 67 16 138/80 H 100 06/17/18 16:19 06/17/18 16:19 06/17/18 16:19 06/17/18 16:19 06/17/18 16:19 Doctor's Discharge - Discharge Referrals: FAUSTINO DIA NP [Primary Care Provider] - Follow up as needed
[2018-06-17 18:36] LABS: APPEARANCE,URINE CLEAR; BILIRUBIN,URINE NEGATIVE (NEGATIVE); COLOR,URINE YELLOW; GLUCOSE, URINE NEGATIVE (NEGATIVE); KETONES,URINE NEGATIVE (NEGATIVE); LEUKOCYTE ESTERASE,URINE NEGATIVE (NEGATIVE); NITRITE,URINE NEGATIVE (NEGATIVE); PROTEIN,URINE NEGATIVE (NEGATIVE); URINE SPECIFIC GRAVITY 1.016; UROBILINOGEN,URINE NEGATIVE mg/dL (<2.0)
--- NOTE | 2018-06-17 19:52 | RADIOLOGY REPORT (SQ) ---
EXAM DESCRIPTION: U/S NON OB PEL TV W/DOPPLER COMPLETED DATE/TIME: 06/17/2018 7:32 pm REASON FOR STUDY: Severe pelvic pain recent h/o gonorrhea and chlamydia COMPARISON: None. TECHNIQUE: Dynamic and static grayscale images acquired of the pelvis via transvaginal approach and recorded on PACS. Additional selected color Doppler and spectral images recorded. LIMITATIONS: None. FINDINGS: UTERUS: Contour normal. No mass. ENDOMETRIAL STRIPE: No focal or generalized thickening. No masses. CERVIX: 2.5 cm. RIGHT OVARY AND DOPPLER: Normal size. No worrisome masses. Normal arterial vascular flow without evid ence for torsion. LEFT OVARY AND DOPPLER: Normal size. No worrisome masses. Normal arterial vascular flow without evide nce for torsion. FREE FLUID: None noted. OTHER: No other significant finding. MEASUREMENTS: UTERUS: 6.4 x 3.4 x 4.4 cm. ENDOMETRIAL STRIPE: 4 mm. RIGHT OVARY: 3.6 x 3 x 4.3 cm. LEFT OVARY: 4.6 x 2.3 x 4 cm. IMPRESSION: NORMAL TRANSVAGINAL PELVIC ULTRASOUND. TECHNICAL DOCUMENTATION: JOB ID: [id number] 1300[employer]- All Rights Reserved Rev-10/31 Reading location - IP/workstation name: [email or web address]
--- NOTE | 2018-06-17 20:08 | ER Document Report ---
ED General - General Mode of Arrival: Ambulatory TRAVEL OUTSIDE OF THE [place] IN LAST 30 DAYS: No - General Chief Complaint: Vaginal Discharge Stated Complaint: PELVIC PAIN, VAGINAL DISCHARGE Time Seen by Provider: 06/17/18 17:53 Notes: 23-year-old female presents with complaint of pelvic pain sand vaginal discharge. She was seen here on May 31 and diagnosed with gonorrhea and received Rocephin, azithromycin and Flagyl at that time. She states pain has worsened since then. She also complains of pain with intercourse. Patient states that her partner was treated at the same time as she was on June 01 and that she did wait 1 week prior to engaging in intercourse and when they did condoms were used. She complains that the discharge is foul-smelling, complains of urgency and pelvic pain, and complains of abdominal pain. She denies fevers or chills. She denies shortness of breath or chest pain. She denies flank pain. (PHYLLIS AZAR) - Related Data Allergies/Adverse Reactions: No Known Allergies Allergy (Verified 06/17/18 15:46) Past Medical History - General Information source: Patient, [facility] Records Last Menstrual Period: 05/17/18 - Social History Smoking Status: Former Smoker Chew tobacco use (# tins/day): No Frequency of alcohol use: None Drug Abuse: None Family History: Reviewed & Not Pertinent Patient has suicidal ideation: No Patient has homicidal ideation: No Pulmonary Medical History: Reports: Hx Asthma Renal/ Medical History: Denies: Hx Peritoneal Dialysis - Immunizations Immunizations up to date: Yes Hx Diphtheria, Pertussis, Tetanus Vaccination: Yes Review of Systems - Review of Systems Constitutional: See HPI EENT: No symptoms reported Cardiovascular: See HPI Respiratory: See HPI Gastrointestinal: See HPI Genitourinary: See HPI Female Genitourinary: See HPI Musculoskeletal: No symptoms reported Skin: No symptoms reported Hematologic/Lymphatic: No symptoms reported Neurological/Psychological: No symptoms reported - Vital signs Vitals: Temp Pulse Resp BP Pulse Ox 98.9 F 67 16 138/80 H 100 06/17/18 16:19 06/17/18 16:19 06/17/18 16:19 06/17/18 16:19 06/17/18 16:19 Course - Re-evaluation Re-evalutation: 06/17/18 20:05 23-year-old female presents to the emergency department for pelvic pain. She was seen here on May 31 and was positive for gonorrhea. She was treated with Rocephin, azithromycin and Flagyl. She was told his symptoms did not improve in a week to return to the emergency department. This was 2 weeks ago and her symptoms have gotten worse and she complains of bilateral lower abdominal pain, dyspareunia. Urinalysis was negative for urinary tract infection. Transvaginal ultrasound was negative for TOA, masses, or ovarian torsion. Plan to perform pelvic exam. Beta hCG negative 06/17/18 20:15 Pelvic exam performed MIKY Pineda present in the room as decator operator. Foul- smelling yellowish discharge seen in vaginal vault over cervix. cervix visualized, nonfriable pink. Cervical motion tenderness elicited. We will give Rocephin 250 mg IM 1 time and a azithromycin 1 g p.o. 1 time. Vaginal sample sent to lab. 06/17/18 20:18 06/17/18 21:47 Swab needed for trichomoniasis. No evidence of bacterial vaginosis. Chlamydia gonorrhea still pending. She has been treated for chlamydia and gonorrhea. Plan is to discharge home with return precautions. 06/17/18 21:50 06/17/18 21:51 (PHYLLIS AZAR) 06/18/18 20:26 I personally evaluated the patient and agree with the treatment and disposition. (NATALY RILEY) - Vital Signs Vital signs: Temp Pulse Resp BP Pulse Ox 97.4 F 63 16 122/72 100 06/17/18 21:14 06/17/18 21:14 06/17/18 21:14 06/17/18 21:14 06/17/18 21:14 Discharge - Discharge Clinical Impression: Pelvic pain Condition: Good Disposition: HOME, SELF-CARE Additional Instructions: VAGINITIS: Your exam shows that you have vaginitis, a vaginal infection. The infection can be caused by a many different organisms, including trichomonas or Gardnerella. The usual symptoms are vaginal irritation and discharge. The treatment is usually antibiotics such as Flagyl. Laboratory tests can determine which germ is responsible. Use the medication as prescribed. Because this infection can be transmitted sexually, your sexual partner may need to be checked and treated also. If your physician has not discussed this with you, please check before resuming sexual relations. If a culture shows gonorrhea or chlamydia, the infection must be reported to the health department. Call the doctor if you develop pelvic pain, fever, or problems with urination, or if you don't improve as expected. Rocephin You have been given an injection of an antibiotic called Rocephin (ceftriaxone). Sometimes the injection must be combined with antibiotic pills. For some infections, such as an uncomplicated ear infection, Rocephin provides all the antibiotic that's needed. The antibiotic will be in your body for about two days. For serious infections, we usually repeat doses of Rocephin daily. Side effects are very unusual following a shot. Women may develop vaginal yeast infections, and babies can get yeast (thrush) in the mouth following the use of antibiotics. Contact your physician if you have symptoms with this medication. Allergy to this antibiotic can result in hives, wheezing, faintness, or itching. If symptoms of allergy occur, call the doctor at once. AZITHROMYCIN: Azithromycin (Zithromax) is a broad spectrum antibiotic in the same class as erythromycin. It can treat a variety of bacterial infections, but is most frequently used for respiratory infections. Azithromycin is extremely long-lasting. It accumulates in body tissues and continues to kill bacteria for many days. In order to improve absorption, Azithromycin should be taken at least one hour before or two hours after a meal. It does not have the same strong tendency to upset the stomach as erythromycin and is usually very well tolerated. Patients who have had a rash or other true allergic reactions to erythromycin should not take this medication. Call if you develop gastrointestinal distress, severe diarrhea, rash, hives, itching, or shortness of breath. FOLLOW-UP CARE: If you have been referred to a physician for follow-up care, call the physicians office for an appointment as you were instructed or within the next two days. If you experience worsening or a significant change in your symptoms, notify the physician immediately or return to the Emergency Department at any time for re-evaluation. Referrals: FAUSTINO DIA NP [NURSE PRACTITIONER] - Follow up as needed
[2018-06-17] MEDS ORDERED: AZITHROMYCIN 250 MG TABLET PO ONE (20:17)
[2018-06-17 20:52] LABS: T.VAGINALIS (WET MOUNT) NO TRICHOMONAS SEEN; WBCS (WET MOUNT) RARE WBCS SEEN; YEAST (WET MOUNT) NO YEAST SEEN
[2018-06-17 21:15] VITALS: BP 122/72
[2018-06-17] MEDS ORDERED: CEFTRIAXONE INJ 250 MG VIAL IM ONE (21:49)
[2018-06-17] MEDS ORDERED: LIDOCAINE 1% INJ (10 MG/ML) 10 ML MDV INJ ONE (21:51)
[2018-06-17 22:19] LABS: CHLAM PCR NOT DETECTED (NOT DETECT); GON PCR NOT DETECTED (NOT DETECT)
== END 2018-06-17 22:36 | disposition home or self-care (01) ==
LOC: ER 15:45
DX: R10.2 Pelvic and perineal pain (principal); N89.8 Other specified noninflammatory disorders of vagina; Z87.891 Personal history of nicotine dependence; J45.909 Unspecified asthma, uncomplicated
CPT/HCPCS: 99284; 96372; 87210; 81025; 81001; 87491; 87591; 76830; 93976; J0696

== ENCOUNTER 2018-07-29 11:31 | Emergency (ER) | payer SELFPAY ==
--- NOTE | 2018-07-29 12:21 | ER Document Report ---
ED Medical Screen (RME) - General TRAVEL OUTSIDE OF THE [place] IN LAST 30 DAYS: No - General Chief Complaint: Vaginal Pain Stated Complaint: RASH/POSSIBLE UTI Time Seen by Provider: 07/29/18 12:18 Primary Care Provider: FAUSTINO DIA NP [Primary Care Provider] - Follow up as needed Notes: 23 years old female presents today with perineal rash, burning sensation on urination for the last few days. ([facility]) - Related Data Allergies/Adverse Reactions: No Known Allergies Allergy (Verified 07/29/18 11:34) Past Medical History - Social History Chew tobacco use (# tins/day): No Frequency of alcohol use: None Drug Abuse: None Pulmonary Medical History: Reports: Hx Asthma Renal/ Medical History: Denies: Hx Peritoneal Dialysis - Immunizations Immunizations up to date: Yes Hx Diphtheria, Pertussis, Tetanus Vaccination: Yes - Vital signs Vitals: Temp Pulse Resp BP Pulse Ox 98.3 F 81 13 142/75 H 100 07/29/18 11:39 07/29/18 11:39 07/29/18 11:39 07/29/18 11:39 07/29/18 11:39 - Vital Signs Vital signs: Temp Pulse Resp BP Pulse Ox 98.3 F 81 13 142/75 H 100 07/29/18 11:39 07/29/18 11:39 07/29/18 11:39 07/29/18 11:39 07/29/18 11:39 - Laboratory Laboratory results interpreted by me: 07/29/18 12:15 Urine Blood SMALL H Doctor's Discharge - Discharge Clinical Impression: Bacterial vaginosis, Herpes genitalia Condition: Stable Disposition: HOME, SELF-CARE Additional Instructions: VAGINITIS: Your exam shows that you have vaginitis, a vaginal infection. The infection can be caused by a many different organisms, including trichomonas or Gardnerella. The usual symptoms are vaginal irritation and discharge. The treatment is usually antibiotics such as Flagyl. Laboratory tests can determine which germ is responsible. Use the medication as prescribed. Because this infection can be transmitted sexually, your sexual partner may need to be checked and treated also. If your physician has not discussed this with you, please check before resuming sexual relations. If a culture shows gonorrhea or chlamydia, the infection must be reported to the health department. Call the doctor if you develop pelvic pain, fever, or problems with urination, or if you don't improve as expected. VAGINOSIS, BACTERIAL: Your exam shows you have bacterial vaginosis. This condition is due to an overgrowth of bacteria in the vagina. Symptoms may include vaginal itching or pain, a smelly discharge, and sometimes burning with urination. Normally this is not transmitted by sexual contact. Vaginosis can be treated with oral or topical antibiotics. Metronidazole (Flagyl) pills are usually effective. Topical vaginal creams include Cleocin and Metro-Gel. You should avoid sexual contact until your symptoms are all better. Call the doctor if you develop pelvic pain, fever, or problems with urination, or if you don't improve as expected. ANTIBIOTIC THERAPY: You have been given an antibiotic prescription. It's important that you take all the medication, unless instructed otherwise by your physician. Failure to complete the entire course can result in relapse of your condition. Common side effects of antibiotics include nausea, intestinal cramping, or diarrhea. Women may develop vaginal yeast infections, and babies can get yeast (thrush) in the mouth following the use of antibiotics. Contact your physician if you develop significant side effects from this medication. Allergy to this antibiotic can result in hives, wheezing, faintness, or itching. If symptoms of allergy occur, stop the medication and call the doctor. Rocephin You have been given an injection of an antibiotic called Rocephin (ceftriaxone). Sometimes the injection must be combined with antibiotic pills. For some infections, such as an uncomplicated ear infection, Rocephin provides all the antibiotic that's needed. The antibiotic will be in your body for about two days. For serious infections, we usually repeat doses of Rocephin daily. Side effects are very unusual following a shot. Women may develop vaginal yeast infections, and babies can get yeast (thrush) in the mouth following the use of antibiotics. Contact your physician if you have symptoms with this medication. Allergy to this antibiotic can result in hives, wheezing, faintness, or itching. If symptoms of allergy occur, call the doctor at once. AZITHROMYCIN: Azithromycin (Zithromax) is a broad spectrum antibiotic in the same class as erythromycin. It can treat a variety of bacterial infections, but is most frequently used for respiratory infections. Azithromycin is extremely long-lasting. It accumulates in body tissues and continues to kill bacteria for many days. In order to improve absorption, Azithromycin should be taken at least one hour before or two hours after a meal. It does not have the same strong tendency to upset the stomach as erythromycin and is usually very well tolerated. Patients who have had a rash or other true allergic reactions to erythromycin should not take this medication. Call if you develop gastrointestinal distress, severe diarrhea, rash, hives, itching, or shortness of breath. METRONIDAZOLE: Metronidazole (Flagyl) has been prescribed. This medication is used to kill a type of bacteria called anaerobes, and protozoan parasites such as trichomonas and Giardia. Flagyl often causes a metallic taste in the mouth and mild nausea. Do not use alcohol in any form with Flagyl (including alcohol in medication elixirs). Flagyl interacts with alcohol to cause flushing, palpitations, headache, stomach cramps, and vomiting. Do not use Flagyl if you are taking Antabuse (disulfiram). Call the doctor at once if you develop rash, shortness of breath, itching, or lightheadedness. FLUCONAZOLE: Fluconazole (Diflucan) is an antifungal drug. It is useful for serious fungal infections, but is also excellent for oral or vaginal yeast infections. Diflucan interacts with some medicines. This is a concern if you are taking anticoagulants (such as Coumadin), phenytoin (Dilantin), cyclosporin, or oral hypoglycemics (such as tolbutamide, Orinase, glipizide, Glucotrol, glyburide, DiaBeta, Glynase, and Micronase). Be sure the doctor knows if you are taking one of these medicines. We don't know how Diflucan affects . If you are planning to become , discuss this with your doctor. Diflucan has few side effects. Minor side effects may include nausea, headache, or diarrhea. Call the doctor if you develop a skin rash, shortness of breath, or other new symptoms. Possible herpes genitalia/vaginitis The following description is about herpes infections in the mouth, but it is the same information and same organism that causes infections in the vaginal area. You have been diagnosed as having a herpes virus infection. The herpes ("cold sore") virus usually infects the areas around the mouth. However, it can cause infection on any skin surface. It's particularly dangerous if infection occurs in the eye. On the initial infection, herpes blisters erupt over a large area. There is usually fever and aching. This infection takes about 14 days to resolve. After the initial infection, herpes sores can erupt on small areas (usually the lips), then heal in about a week. Sunburn, fever, local irritation, or even emotions can provoke a "fever blister" attack of herpes. Initial herpes infections can be treated with medication if severe. Subsequent attacks are usually given only local care to reduce symptoms; however, the physician may decide to prescribe anti-viral medication if your case warrants it. Call the doctor if you are worsening in any way. FOLLOW-UP CARE: If you have been referred to a physician for follow-up care, call the physicians office for an appointment as you were instructed or within the next two days. If you experience worsening or a significant change in your symptoms, notify the physician immediately or return to the Emergency Department at any time for re-evaluation. Prescriptions: Metronidazole [Flagyl 500 mg Tablet] 500 mg PO BID #14 tablet Valacyclovir HCl [Valtrex] 1,000 mg PO BID #20 tablet Referrals: FAUSTINO DIA NP [Primary Care Provider] - Follow up as needed
[2018-07-29 12:56] LABS: APPEARANCE,URINE SLIGHTLY-CLOUDY; BILIRUBIN,URINE NEGATIVE (NEGATIVE); COLOR,URINE YELLOW; GLUCOSE, URINE NEGATIVE (NEGATIVE); KETONES,URINE NEGATIVE (NEGATIVE); LEUKOCYTE ESTERASE,URINE NEGATIVE (NEGATIVE); NITRITE,URINE NEGATIVE (NEGATIVE); PROTEIN,URINE NEGATIVE (NEGATIVE); URINE SPECIFIC GRAVITY 1.023; UROBILINOGEN,URINE NEGATIVE mg/dL (<2.0)
[2018-07-29] MEDS ORDERED: CEFTRIAXONE INJ 250 MG VIAL IM ONE (13:15)
[2018-07-29] MEDS ORDERED: AZITHROMYCIN 1 GM SUSP PACKET PO ONE (13:16)
[2018-07-29 13:19] LABS: RBCS (WET MOUNT) RARE RBCS SEEN; T.VAGINALIS (WET MOUNT) NO TRICHOMONAS SEEN; WBCS (WET MOUNT) RARE WBCS SEEN; YEAST (WET MOUNT) NO YEAST SEEN
[2018-07-29 14:45] LABS: GON PCR NOT DETECTED (NOT DETECT)
[2018-07-29 14:51] LABS: CHLAM PCR NOT DETECTED (NOT DETECT)
[2018-07-29 15:05] VITALS: BP 132/74
--- NOTE | 2018-07-29 19:11 | ER Document Report ---
ED GI/ - General Chief Complaint: Vaginal Pain Stated Complaint: RASH/POSSIBLE UTI Time Seen by Provider: 07/29/18 12:18 Primary Care Provider: FAUSTINO DIA NP [Primary Care Provider] - Follow up as needed Notes: Patient says she has a painful rash of the vagina. She says it has felt "dry" on the inner labia bilaterally for about 10 days to 2 weeks. Yesterday morning, patient noticed the beginning of a rash around the introitus. She says it stings and ellis, especially when urine comes in contact with the area. She has had some white discharge, as well. Her last sexual intercourse was 5 days ago. She has had a single sexual partner for a long time. He has never had any rashes, diagnosed with any STDs, or any herpes infections, as far as the patient knows. Patient's last menstrual cycle was June 18. TRAVEL OUTSIDE OF THE [place] IN LAST 30 DAYS: No - Related Data Allergies/Adverse Reactions: No Known Allergies Allergy (Verified 07/29/18 11:34) Past Medical History - Social History Smoking Status: Never Smoker Chew tobacco use (# tins/day): No Frequency of alcohol use: None Drug Abuse: None Family History: Reviewed & Not Pertinent Patient has suicidal ideation: No Patient has homicidal ideation: No Pulmonary Medical History: Reports: Hx Asthma Infectious Medical History: Reports: Other - No history of any herpes infections. - Immunizations Immunizations up to date: Yes Hx Diphtheria, Pertussis, Tetanus Vaccination: Yes Review of Systems - Review of Systems Notes: REVIEW OF SYSTEMS: CONSTITUTIONAL : Denies fever. EENT: Denies eye, ear, nose or mouth or throat pain or other symptoms. CARDIOVASCULAR: Denies chest pain. RESPIRATORY: Denies cough, chest congestion, or shortness of breath. GASTROINTESTINAL: Denies abdominal pain or nausea, vomiting, or diarrhea. GENITOURINARY: See HPI.. MUSCULOSKELETAL: Denies back or neck pain. Denies joint pain or swelling. SKIN: Denies rash or skin lesions. NEUROLOGICAL: Denies LOC or altered mental status. Denies headache. Denies sensory loss or motor deficits. ALL OTHER SYSTEMS REVIEWED AND NEGATIVE. Physical Exam - Vital signs Vitals: Temp Pulse Resp BP Pulse Ox 98.3 F 81 13 142/75 H 100 07/29/18 11:39 07/29/18 11:39 07/29/18 11:39 07/29/18 11:39 07/29/18 11:39 Interpretation: Normal Notes: PHYSICAL EXAMINATION: GENERAL: Well-appearing, in no acute distress. HEAD: Atraumatic, normocephalic. EYES: Pupils equal round and reactive to light, extraocular movements intact. ENT: oropharynx clear without exudates. Moist mucous membranes. NECK: Normal range of motion, supple. LUNGS: Breath sounds clear and equal bilaterally. HEART: Regular rate and rhythm without murmurs. ABDOMEN: Soft, nontender. No guarding or rebound. No masses. BACK: No tenderness throughout entire back. EXTREMITIES: Normal range of motion without pain. NEUROLOGICAL: Normal speech, normal gait. Normal sensory, motor, and reflex exams. Awake, alert, and oriented x3. Cranial nerves normal. PSYCH: Normal mood, normal affect. SKIN: Warm, dry, no rashes. - Genitourinary External exam: Other - Lesions around the upper and lower vaginal introitus that look like herpetic denuded lesions. There are multiple lesions, both upper and lower, which are extremely painful to touch. Cannot think of anything that would look like this except for herpes. No other lesions. Vaginal bleeding: None Bimanuel exam: Normal Course - Re-evaluation Re-evalutation: 07/29/18 19:15 All the patient's lab studies came back normal. Herpes culture is a send out and will be back for about a week. I gave the patient contact information to call me next Friday and I will try to give her the results then. In the meantime, patient has been prescribed Valtrex and metronidazole. - Vital Signs Vital signs: Temp Pulse Resp BP Pulse Ox 98.0 F 88 18 132/74 H 99 07/29/18 14:45 07/29/18 14:45 07/29/18 14:45 07/29/18 14:45 07/29/18 14:45 - Laboratory Laboratory results interpreted by me: 07/29/18 12:15 Urine Blood SMALL H Discharge - Discharge Clinical Impression: Bacterial vaginosis, Herpes genitalia Condition: Stable Disposition: HOME, SELF-CARE Additional Instructions: VAGINITIS: Your exam shows that you have vaginitis, a vaginal infection. The infection can be caused by a many different organisms, including trichomonas or Gardnerella. The usual symptoms are vaginal irritation and discharge. The treatment is usually antibiotics such as Flagyl. Laboratory tests can determine which germ is responsible. Use the medication as prescribed. Because this infection can be transmitted sexually, your sexual partner may need to be checked and treated also. If your physician has not discussed this with you, please check before resuming sexual relations. If a culture shows gonorrhea or chlamydia, the infection must be reported to the health department. Call the doctor if you develop pelvic pain, fever, or problems with urination, or if you don't improve as expected. VAGINOSIS, BACTERIAL: Your exam shows you have bacterial vaginosis. This condition is due to an overgrowth of bacteria in the vagina. Symptoms may include vaginal itching or pain, a smelly discharge, and sometimes burning with urination. Normally this is not transmitted by sexual contact. Vaginosis can be treated with oral or topical antibiotics. Metronidazole (Flagyl) pills are usually effective. Topical vaginal creams include Cleocin and Metro-Gel. You should avoid sexual contact until your symptoms are all better. Call the doctor if you develop pelvic pain, fever, or problems with urination, or if you don't improve as expected. ANTIBIOTIC THERAPY: You have been given an antibiotic prescription. It's important that you take all the medication, unless instructed otherwise by your physician. Failure to complete the entire course can result in relapse of your condition. Common side effects of antibiotics include nausea, intestinal cramping, or diarrhea. Women may develop vaginal yeast infections, and babies can get yeast (thrush) in the mouth following the use of antibiotics. Contact your physician if you develop significant side effects from this medication. Allergy to this antibiotic can result in hives, wheezing, faintness, or itching. If symptoms of allergy occur, stop the medication and call the doctor. Rocephin You have been given an injection of an antibiotic called Rocephin (ceftriaxone). Sometimes the injection must be combined with antibiotic pills. For some infections, such as an uncomplicated ear infection, Rocephin provides all the antibiotic that's needed. The antibiotic will be in your body for about two days. For serious infections, we usually repeat doses of Rocephin daily. Side effects are very unusual following a shot. Women may develop vaginal yeast infections, and babies can get yeast (thrush) in the mouth following the use of antibiotics. Contact your physician if you have symptoms with this medication. Allergy to this antibiotic can result in hives, wheezing, faintness, or itching. If symptoms of allergy occur, call the doctor at once. AZITHROMYCIN: Azithromycin (Zithromax) is a broad spectrum antibiotic in the same class as erythromycin. It can treat a variety of bacterial infections, but is most frequently used for respiratory infections. Azithromycin is extremely long-lasting. It accumulates in body tissues and continues to kill bacteria for many days. In order to improve absorption, Azithromycin should be taken at least one hour before or two hours after a meal. It does not have the same strong tendency to upset the stomach as erythromycin and is usually very well tolerated. Patients who have had a rash or other true allergic reactions to erythromycin should not take this medication. Call if you develop gastrointestinal distress, severe diarrhea, rash, hives, itching, or shortness of breath. METRONIDAZOLE: Metronidazole (Flagyl) has been prescribed. This medication is used to kill a type of bacteria called anaerobes, and protozoan parasites such as trichomonas and Giardia. Flagyl often causes a metallic taste in the mouth and mild nausea. Do not use alcohol in any form with Flagyl (including alcohol in medication elixirs). Flagyl interacts with alcohol to cause flushing, palpitations, headache, stomach cramps, and vomiting. Do not use Flagyl if you are taking Antabuse (disulfiram). Call the doctor at once if you develop rash, shortness of breath, itching, or lightheadedness. FLUCONAZOLE: Fluconazole (Diflucan) is an antifungal drug. It is useful for serious fungal infections, but is also excellent for oral or vaginal yeast infections. Diflucan interacts with some medicines. This is a concern if you are taking anticoagulants (such as Coumadin), phenytoin (Dilantin), cyclosporin, or oral hypoglycemics (such as tolbutamide, Orinase, glipizide, Glucotrol, glyburide, DiaBeta, Glynase, and Micronase). Be sure the doctor knows if you are taking one of these medicines. We don't know how Diflucan affects . If you are planning to become , discuss this with your doctor. Diflucan has few side effects. Minor side effects may include nausea, headache, or diarrhea. Call the doctor if you develop a skin rash, shortness of breath, or other new symptoms. Possible herpes genitalia/vaginitis The following description is about herpes infections in the mouth, but it is the same information and same organism that causes infections in the vaginal area. You have been diagnosed as having a herpes virus infection. The herpes ("cold sore") virus usually infects the areas around the mouth. However, it can cause infection on any skin surface. It's particularly dangerous if infection occurs in the eye. On the initial infection, herpes blisters erupt over a large area. There is usually fever and aching. This infection takes about 14 days to resolve. After the initial infection, herpes sores can erupt on small areas (usually the lips), then heal in about a week. Sunburn, fever, local irritation, or even emotions can provoke a "fever blister" attack of herpes. Initial herpes infections can be treated with medication if severe. Subsequent attacks are usually given only local care to reduce symptoms; however, the physician may decide to prescribe anti-viral medication if your case warrants it. Call the doctor if you are worsening in any way. FOLLOW-UP CARE: If you have been referred to a physician for follow-up care, call the physicians office for an appointment as you were instructed or within the next two days. If you experience worsening or a significant change in your symptoms, notify the physician immediately or return to the Emergency Department at any time for re-evaluation. Prescriptions: Metronidazole [Flagyl 500 mg Tablet] 500 mg PO BID #14 tablet Valacyclovir HCl [Valtrex] 1,000 mg PO BID #20 tablet Referrals: FAUSTINO DIA NP [Primary Care Provider] - Follow up as needed
== END 2018-07-29 15:05 | disposition home or self-care (01) ==
LOC: ER 11:31
DX: N76.0 Acute vaginitis (principal); B96.89 Other specified bacterial agents as the cause of diseases classified elsewhere; A60.00 Herpesviral infection of urogenital system, unspecified; R10.2 Pelvic and perineal pain; R21 Rash and other nonspecific skin eruption; J45.909 Unspecified asthma, uncomplicated
CPT/HCPCS: 99283; 87210; 81001; 87250; 87491; 87591; Q0144; J0696

== ENCOUNTER 2018-08-10 23:31 | Emergency (ER) | payer SELFPAY ==
--- NOTE | 2018-08-11 02:00 | ER Document Report ---
ED Medical Screen (RME) - General Chief Complaint: Vaginal Itching Stated Complaint: VAGINAL ISSUE Time Seen by Provider: 08/11/18 01:58 Primary Care Provider: FAUSTINO DIA NP [Primary Care Provider] - Follow up as needed Notes: 23-year-old female with chief complaint of vaginal irritation, itching, and painful urination. No bleeding or noted discharge. Denies abdominal pain, fever, nausea, vomiting. Past medical history of HSV, recently completed Valtrex, unsure if this returned or not. She is sexually active with her boyfriend. TRAVEL OUTSIDE OF THE [place] IN LAST 30 DAYS: No - Related Data Allergies/Adverse Reactions: No Known Allergies Allergy (Verified 07/29/18 11:34) Past Medical History Pulmonary Medical History: Reports: Hx Asthma Renal/ Medical History: Denies: Hx Peritoneal Dialysis - Immunizations Immunizations up to date: Yes Hx Diphtheria, Pertussis, Tetanus Vaccination: Yes Physical Exam - Vital signs Vitals: Temp Pulse Resp BP Pulse Ox 98.3 F 78 20 115/70 99 08/11/18 00:21 08/11/18 00:21 08/11/18 00:21 08/11/18 00:21 08/11/18 00:21 - General General appearance: Appears well In distress: None - Abdominal Inspection: Normal Tenderness: Nontender Course - Vital Signs Vital signs: Temp Pulse Resp BP Pulse Ox 98.3 F 78 20 115/70 99 08/11/18 00:21 08/11/18 00:21 08/11/18 00:21 08/11/18 00:21 08/11/18 00:21 Doctor's Discharge - Discharge Referrals: FAUSTINO DIA NP [Primary Care Provider] - Follow up as needed
[2018-08-11 06:27] LABS: AMORPHOUS SEDIMENT,URINE TRACE /HPF; APPEARANCE,URINE TURBID; BILIRUBIN,URINE NEGATIVE (NEGATIVE); CALCIUM OXALATE CRYSTALS,URINE RARE /HPF; COLOR,URINE YELLOW; GLUCOSE, URINE NEGATIVE (NEGATIVE); KETONES,URINE NEGATIVE (NEGATIVE); LEUKOCYTE ESTERASE,URINE TRACE (NEGATIVE); NITRITE,URINE NEGATIVE (NEGATIVE); PROTEIN,URINE NEGATIVE (NEGATIVE); UROBILINOGEN,URINE NEGATIVE mg/dL (<2.0)
[2018-08-11] MEDS ORDERED: LIDOCAINE 1% INJ-PF (10 MG/ML) 30 ML SDV NEB ONE (06:35)
[2018-08-11] MEDS ORDERED: AZITHROMYCIN 250 MG TABLET PO ONE (06:35)
[2018-08-11] MEDS ORDERED: CEFTRIAXONE INJ 250 MG VIAL IM ONE (06:35)
--- NOTE | 2018-08-11 06:36 | ER Document Report ---
ED General - General Chief Complaint: Vaginal Itching Stated Complaint: VAGINAL ISSUE Time Seen by Provider: 08/11/18 01:58 Primary Care Provider: [facility] [Provider Group] - Follow up as needed FAUSTINO DIA NP [Primary Care Provider] - Follow up as needed Notes: Patient is a 23-year-old female that presents to the emergency department for chief complaint of vaginal itching and urinary frequency. Patient reports having symptoms over the past few days, denies any vaginal discharge or bleeding associated. She describes as an itching pain and a burning sensation when she urinates. She is also concerned that she may been exposed to chlamydia, and wants to be treated for this as well. She denies having any pelvic pain or cramping, denies fevers, chills, night sweats, flank pain, chest pain, nausea, vomiting or abdominal pain. No other complaints at this time. Past Medical History: Denies chronic medical conditions Past Surgical History: Denies surgical history Social History: Denies tobacco, alcohol or drug use. Family History: Reviewed and noncontributory for presenting illness Allergies: Reviewed, see documented allergy list. REVIEW OF SYSTEMS: Other than noted above, the 12 point review of systems was reviewed with the patient and were negative, all pertinent findings are included in the HPI. PHYSICAL EXAMINATION: Vital signs reviewed, nursing noted reviewed. GENERAL: Well-appearing, well-nourished and in no acute distress. HEAD: Atraumatic, normocephalic. EYES: Eyes appear normal, extraocular movements intact, sclera anicteric, conjunctiva are normal. ENT: nares patent, oropharynx clear without exudates. Moist mucous membranes. NECK: Normal range of motion, supple without lymphadenopathy LUNGS: Breath sounds clear to auscultation bilaterally and equal. No wheezes rales or rhonchi. HEART: Regular rate and rhythm without murmurs Pelvic Exam: With a central sterile technician present the exam was explained to the patient and patient agreed to proceed with exam. On exam, no external lesions or abnormalities noted. Internal speculum exam demonstrated normal appearing cervix without purulent discharge. Swabs obtained. Bimanual exam was negative for adnexal tenderness, or palpable masses. ABDOMEN: Soft, nontender, normoactive bowel sounds. No rebound, guarding, or rigidity. No masses appreciated. EXTREMITIES: Nontender, good range of motion, no pitting or edema. NEUROLOGICAL: No focal neurological deficits. Moves all extremities spontaneously Motor and sensory grossly intact on exam. PSYCH: Normal mood, normal affect. SKIN: Warm, Dry, normal turgor, no rashes or lesions noted on exposed skin TRAVEL OUTSIDE OF THE [place] IN LAST 30 DAYS: No - Related Data Allergies/Adverse Reactions: No Known Allergies Allergy (Verified 07/29/18 11:34) Past Medical History - Social History Smoking Status: Never Smoker Chew tobacco use (# tins/day): No Frequency of alcohol use: None Drug Abuse: None Family History: Reviewed & Not Pertinent Patient has suicidal ideation: No Patient has homicidal ideation: No Pulmonary Medical History: Reports: Hx Asthma Renal/ Medical History: Denies: Hx Peritoneal Dialysis - Immunizations Immunizations up to date: Yes Hx Diphtheria, Pertussis, Tetanus Vaccination: Yes Physical Exam - Vital signs Vitals: Temp Pulse Resp BP Pulse Ox 98.3 F 78 20 115/70 99 08/11/18 00:21 08/11/18 00:21 08/11/18 00:21 08/11/18 00:21 08/11/18 00:21 Course - Re-evaluation Re-evalutation: Patient seen and examined vital signs reviewed. Patient was treated with IM Rocephin, p.o. azithromycin for coverage of ST exposure Results were reviewed when available and demonstrated unremarkable wet prep, UA concerning for possible UTI, will treat patient with Bactrim for 3 days, additionally given Diflucan in case she develops a yeast infection. The patient was re-evaluated and was stable Evaluation was most consistent with UTI, possible STD exposure. Results were discussed with the patient at this point, after careful consideration I feel that that patient can be discharged from the emergency department, the patient was educated treatments and reasons to return to the emergency department based on their presumed diagnosis as noted above, they were advised to followup with a primary care physician in 2-3 days. Patient was agreeable to plan of care. *Note is created using voice recognition software and may contain spelling, syntax or grammatical errors. Laboratory 08/11/18 08/11/18 08/11/18 00:21 00:21 06:30 Urine Color YELLOW Urine Appearance TURBID Urine pH 5.0 Ur Specific Dorothy 1.030 Urine Protein NEGATIVE Urine Glucose (UA) NEGATIVE Urine Ketones NEGATIVE Urine Blood NEGATIVE Urine Nitrite NEGATIVE Urine Bilirubin NEGATIVE Urine Urobilinogen NEGATIVE Ur Leukocyte Esterase TRACE H Urine WBC (Auto) 9 Urine RBC (Auto) 2 Urine Bacteria (Auto) 1+ Squamous Epi Cells Auto 1 Calcium Oxalate Cr Auto RARE Amorphous Sediment Auto TRACE Urine Mucus (Auto) FEW Urine Ascorbic Acid NEGATIVE Urine HCG, Qual NEGATIVE Epi Cells (Wet Prep) 3+ EPITHELIALS SEEN Trichomonas (Wet Prep) NO TRICHOMONAS SEEN Vaginal WBC NO WBCS SEEN Vaginal RBC NO RBCS SEEN Vaginal Yeast NO YEAST SEEN Chlamydia DNA (PCR) N.gonorrhoeae DNA (PCR) 08/11/18 06:30 Urine Color Urine Appearance Urine pH Ur Specific Dorothy Urine Protein Urine Glucose (UA) Urine Ketones Urine Blood Urine Nitrite Urine Bilirubin Urine Urobilinogen Ur Leukocyte Esterase Urine WBC (Auto) Urine RBC (Auto) Urine Bacteria (Auto) Squamous Epi Cells Auto Calcium Oxalate Cr Auto Amorphous Sediment Auto Urine Mucus (Auto) Urine Ascorbic Acid Urine HCG, Qual Epi Cells (Wet Prep) Trichomonas (Wet Prep) Vaginal WBC Vaginal RBC Vaginal Yeast Chlamydia DNA (PCR) NOT DETECTED N.gonorrhoeae DNA (PCR) NOT DETECTED - Vital Signs Vital signs: Temp Pulse Resp BP Pulse Ox 98.0 F 86 18 136/78 H 100 08/11/18 07:38 08/11/18 07:38 08/11/18 07:38 08/11/18 07:38 08/11/18 07:38 - Laboratory Laboratory results interpreted by me: 08/11/18 00:21 Ur Leukocyte Esterase TRACE H Discharge - Discharge Clinical Impression: Vaginal irritation UTI (urinary tract infection) Qualifiers: Urinary tract infection type: site unspecified Hematuria presence: without hematuria Qualified Code(s): N39.0 - Urinary tract infection, site not specified Condition: Stable Disposition: HOME, SELF-CARE Additional Instructions: Please follow-up with an GAMING WORKER, your testing today did not reveal any signs of yeast infection, or bacterial vaginosis, we did testing for gonorrhea and chlamydia, and will let you know the results of this if they are positive, you have been treated today for both of these conditions. \ We will treat you for urinary tract infection symptoms, given that she had the symptoms, your urine will be sent for culture as well. You will be given 3 days of antibiotic, complete the entire course. You were additionally given a prescription for an antifungal medication, if you develop a yeast infection, with white discharge, or vaginal itching, you can take this medication after completing the antibiotics. Prescriptions: Fluconazole [Diflucan] 150 mg PO ONCE PRN #1 tablet PRN Reason: yeast infection Sulfamethoxazole/Trimethoprim [Bactrim Ds Tablet] 1 each PO BID #6 tablet Referrals: FAUSTINO DIA NP [Primary Care Provider] - Follow up as needed [facility] [Provider Group] - Follow up as needed
[2018-08-11 06:45] LABS: EPITHELIALS (WET MOUNT) 3+ EPITHELIALS SEEN; RBCS (WET MOUNT) NO RBCS SEEN; T.VAGINALIS (WET MOUNT) NO TRICHOMONAS SEEN; WBCS (WET MOUNT) NO WBCS SEEN; YEAST (WET MOUNT) NO YEAST SEEN
[2018-08-11 07:41] VITALS: BP 136/78
[2018-08-11 08:11] LABS: CHLAM PCR NOT DETECTED (NOT DETECT); GON PCR NOT DETECTED (NOT DETECT)
== END 2018-08-11 07:46 | disposition home or self-care (01) ==
LOC: ER 23:31
DX: N39.0 Urinary tract infection, site not specified (principal); L29.2 Pruritus vulvae; R35.0 Frequency of micturition
CPT/HCPCS: 99283; 96372; 87210; 81025; 81001; 87491; 87591; J3490; J0696

== ENCOUNTER 2018-09-28 21:21 | Emergency (ER) | payer SELFPAY ==
[2018-09-28 23:53] LABS: APPEARANCE,URINE CLOUDY; BILIRUBIN,URINE NEGATIVE (NEGATIVE); COLOR,URINE AMBER; GLUCOSE, URINE NEGATIVE (NEGATIVE); KETONES,URINE NEGATIVE (NEGATIVE); LEUKOCYTE ESTERASE,URINE SMALL (NEGATIVE); NITRITE,URINE NEGATIVE (NEGATIVE); PROTEIN,URINE 100 mg/dL (NEGATIVE); UROBILINOGEN,URINE NEGATIVE mg/dL (<2.0)
[2018-09-29 00:43] LABS: T.VAGINALIS (WET MOUNT) NO TRICHOMONAS SEEN; WBCS (WET MOUNT) FEW WBCS SEEN; YEAST (WET MOUNT) NO YEAST SEEN
[2018-09-29 00:44] LABS: BACTERIA (WET MOUNT) 4+ BACTERIA SEEN; EPITHELIALS (WET MOUNT) 4+ EPITHELIALS SEEN; RBCS (WET MOUNT) NO RBCS SEEN
[2018-09-29] MEDS ORDERED: METRONIDAZOLE 500 MG TABLET PO ONE (00:57)
[2018-09-29] MEDS ORDERED: CEPHALEXIN 500 MG CAPSULE PO ONE (00:58)
--- NOTE | 2018-09-29 00:59 | ER Document Report ---
HPI - HPI Time Seen by Provider: 09/28/18 23:36 Pain Level: 4 Notes: Patient is an otherwise healthy 23-year-old female presenting to the emergency department with dysuria, urinary frequency and white vaginal discharge. She states the symptoms have been ongoing for approximately 2 days. She denies any abdominal pain, pelvic pain, nausea, vomiting or diarrhea. She has been without a fever. - REPRODUCTIVE Reproductive: DENIES: : Past Medical History - General Information source: Patient - Social History Smoking Status: Never Smoker Frequency of alcohol use: None Drug Abuse: None Family History: Reviewed & Not Pertinent Pulmonary Medical History: Reports: Hx Asthma Renal/ Medical History: Denies: Hx Peritoneal Dialysis - Immunizations Immunizations up to date: Yes Hx Diphtheria, Pertussis, Tetanus Vaccination: Yes Vertical Provider Document - CONSTITUTIONAL Notes: PHYSICAL EXAMINATION: GENERAL: Well-appearing, well-nourished and in no acute distress. HEAD: Atraumatic, normocephalic. EYES: Pupils equal round and reactive to light, extraocular movements intact, conjunctiva are normal. ENT: Nares patent, oropharynx clear without exudates. Moist mucous membranes. NECK: Normal range of motion, supple without lymphadenopathy LUNGS: Breath sounds clear to auscultation bilaterally and equal. No wheezes rales or rhonchi. HEART: Regular rate and rhythm without murmurs ABDOMEN: Soft, nontender, nondistended abdomen. No guarding, no rebound. No masses appreciated. Female : No CVA tenderness. Musculoskeletal: Normal range of motion, no pitting or edema. No cyanosis. NEUROLOGICAL: Cranial nerves grossly intact. Normal speech, normal gait. Normal sensory, motor exams PSYCH: Normal mood, normal affect. SKIN: Warm, Dry, normal turgor, no rashes or lesions noted. - INFECTION CONTROL TRAVEL OUTSIDE OF THE [place] IN LAST 30 DAYS: No Course - Re-evaluation Re-evalutation: Patient's labs are consistent with urinary tract infection as well as bacterial vaginosis. Patient will be started on oral antibiotics for both. Urine culture is pending. Patient's physical examination is unremarkable, she has no CVA tenderness. Her vital signs are within normal limits. Patient will be discharged home in stable condition, patient verbalizes understanding of ED return precautions. - Vital Signs Vital signs: Temp Pulse Resp BP Pulse Ox 98.2 F 67 18 140/73 H 100 09/28/18 22:00 09/28/18 22:00 09/28/18 22:00 09/28/18 22:00 09/28/18 22:00 - Laboratory Laboratory results interpreted by me: 09/28/18 21:50 Urine Protein 100 H Urine Blood SMALL H Ur Leukocyte Esterase SMALL H Urine Ascorbic Acid 40 H Discharge - Discharge Clinical Impression: Bacterial vaginosis Urinary tract infection Qualifiers: Urinary tract infection type: site unspecified Hematuria presence: with hematuria Qualified Code(s): N39.0 - Urinary tract infection, site not specified Condition: Stable Disposition: HOME, SELF-CARE Additional Instructions: You have an overgrowth of natural vaginal bacteria, called bacterial vaginosis. You are being treated with an antibiotic called metronidazole. Do not drink alcohol while taking this medication. Complete all of the antibiotic even if your symptoms have resolved. Return for abdominal pain, vomiting, fever of greater than 101F, or any other symptoms that are worrisome to you. Please follow-up with your SOFTWARE CONTROLS ENGINEER or primary care doctor as needed. Your urine shows findings consistent with a urinary tract infection. Please take all the antibiotics as directed even if your symptoms have improved. Please follow-up with your primary care physician as needed. Return to emergency room if you develop fever >101F, persistent vomiting, become lethargic, have severe pain in your sides, or any other symptoms that are co ncerning to you. Prescriptions: Cephalexin [Cephalexin 500 MG Tablet] 1 tab PO BID #14 tablet Metronidazole [Flagyl 500 mg Tablet] 500 mg PO BID #14 tablet Referrals: FAUSTINO DIA NP [Primary Care Provider] - Follow up as needed
[2018-09-29 01:24] VITALS: BP 125/77
== END 2018-09-29 01:27 | disposition home or self-care (01) ==
LOC: ER 21:21
DX: N76.0 Acute vaginitis (principal); B96.89 Other specified bacterial agents as the cause of diseases classified elsewhere; N39.0 Urinary tract infection, site not specified; R30.0 Dysuria; R35.0 Frequency of micturition; J45.909 Unspecified asthma, uncomplicated
CPT/HCPCS: 81001; 87086; 87088; 87186; 87210; 99284

== ENCOUNTER 2018-10-16 20:09 | Emergency (ER) | payer SELFPAY ==
--- NOTE | 2018-10-16 21:50 | ER Document Report ---
ED Medical Screen (RME) - General Chief Complaint: Urinary Problem Stated Complaint: URINARY PROBLEM/ABDOMINAL PAIN Time Seen by Provider: 10/16/18 21:38 Primary Care Provider: FAUSTINO DIA NP [Primary Care Provider] - Follow up as needed Notes: Patient is a 23-year-old female presents to the emergency department for vaginal itching and urinary frequency. Patient states she was here about 2 to 3 weeks ago treated for urinary tract infection and bacterial vaginosis. States the symptoms stopped for a few days but then persisted. Patient states she completed a full course of Flagyl and Keflex. Patient is denying any vomiting, fevers. GENERAL: Alert, interacts well. No acute distress. ABDOMEN: Soft, non-tender. Non-distended. Bowel sounds present in all 4 quadrants. I have greeted and performed a rapid initial assessment of this patient. A comprehensive ED assessment and evaluation of the patient, analysis of test results and completion of the medical decision making process will be conducted by additional ED providers. This medical record was dictated with voice recognizing software. There may be grammatical, syntax errors that are unintended. TRAVEL OUTSIDE OF THE [place] IN LAST 30 DAYS: No - Related Data Allergies/Adverse Reactions: No Known Allergies Allergy (Verified 10/16/18 21:32) Past Medical History - Social History Frequency of alcohol use: None Drug Abuse: None Pulmonary Medical History: Reports: Hx Asthma Renal/ Medical History: Denies: Hx Peritoneal Dialysis - Immunizations Immunizations up to date: Yes Hx Diphtheria, Pertussis, Tetanus Vaccination: Yes Physical Exam - Vital signs Vitals: Temp Pulse Resp BP Pulse Ox 98.2 F 64 18 121/61 100 10/16/18 20:27 10/16/18 20:27 10/16/18 20:27 10/16/18 20:27 10/16/18 20:27 Course - Vital Signs Vital signs: Temp Pulse Resp BP Pulse Ox 98.2 F 64 18 121/61 100 10/16/18 20:27 10/16/18 20:27 10/16/18 20:27 10/16/18 20:27 10/16/18 20:27 Doctor's Discharge - Discharge Referrals: FAUSTINO DIA NP [Primary Care Provider] - Follow up as needed
[2018-10-16 23:05] LABS: APPEARANCE,URINE SLIGHTLY-CLOUDY; BILIRUBIN,URINE NEGATIVE (NEGATIVE); COLOR,URINE YELLOW; GLUCOSE, URINE NEGATIVE (NEGATIVE); KETONES,URINE TRACE mg/dL (NEGATIVE); LEUKOCYTE ESTERASE,URINE TRACE (NEGATIVE); NITRITE,URINE NEGATIVE (NEGATIVE); PROTEIN,URINE NEGATIVE (NEGATIVE); URINE SPECIFIC GRAVITY 1.028; UROBILINOGEN,URINE NEGATIVE mg/dL (<2.0)
[2018-10-17 02:22] LABS: BACTERIA (WET MOUNT) 4+ BACTERIA SEEN; EPITHELIALS (WET MOUNT) 4+ EPITHELIALS SEEN; RBCS (WET MOUNT) FEW RBCS SEEN; T.VAGINALIS (WET MOUNT) NO TRICHOMONAS SEEN; WBCS (WET MOUNT) 1+ WBCS SEEN; YEAST (WET MOUNT) NO YEAST SEEN
--- NOTE | 2018-10-17 02:57 | ER Document Report ---
ED General - General Stated Complaint: URINARY PROBLEM/ABDOMINAL PAIN Time Seen by Provider: 10/16/18 21:38 Primary Care Provider: FAUSTINO DIA NP [Primary Care Provider] - Follow up as needed TRAVEL OUTSIDE OF THE [place] IN LAST 30 DAYS: No - HPI Notes: Patient is a 23-year-old female presents the emergency department. For about a month she has been complaining of frequent urination, strong smelling urine, pain after urination, external vaginal irritation. She was treated for bacterial vaginosis and UTI. She states that she took the medications, symptoms eased but never completely resolved. She is still with same sexual partner. She is monogamous. She denies any fevers chills. No nausea or vomiting. She has some left-sided abdominal pain but that is been ongoing for months. - Related Data Allergies/Adverse Reactions: No Known Allergies Allergy (Verified 10/16/18 21:32) Past Medical History - General Information source: Patient - Social History Smoking Status: Never Smoker Frequency of alcohol use: None Drug Abuse: None Family History: Reviewed & Not Pertinent Patient has suicidal ideation: No Patient has homicidal ideation: No Pulmonary Medical History: Reports: Hx Asthma Renal/ Medical History: Denies: Hx Peritoneal Dialysis - Immunizations Immunizations up to date: Yes Hx Diphtheria, Pertussis, Tetanus Vaccination: Yes Review of Systems - Review of Systems Constitutional: No symptoms reported EENT: No symptoms reported Cardiovascular: No symptoms reported Respiratory: No symptoms reported Gastrointestinal: See HPI Genitourinary: See HPI Female Genitourinary: See HPI Musculoskeletal: No symptoms reported Skin: No symptoms reported Physical Exam - Vital signs Vitals: Temp Pulse Resp BP Pulse Ox 98.2 F 64 18 121/61 100 10/16/18 20:27 10/16/18 20:27 10/16/18 20:27 10/16/18 20:27 10/16/18 20:27 - Notes Notes: Vital signs reviewed, please refer to chart. Head is normocephalic, atraumatic. Pupils equal round, reactive to light. Neck is supple without meningismus. Heart is regular rate and rhythm. Lungs are clear to auscultation bilaterally. Abdomen is soft, nontender, normoactive bowel sounds throughout. Extremities without cyanosis, clubbing. Posterior calves are nontender. Peripheral pulses are equal. Skin is warm and dry. Patient is awake, alert, neurological exam is nonfocal. Course - Re-evaluation Re-evalutation: 10/17/18 02:55 Patient presents to the emerge department for evaluation. Urinalysis failed to reveal any signs of infection. Wet mount did reveal large amount of bacteria. Her gonorrhea and chlamydia have been negative in the past, I do not have any strong suspicion that will be positive today. I will then treat her with MetroGel instead of oral Flagyl. She will be given a 5-day course. She is to follow-up with primary care and OB, return to the ED with worsening or concerning symptoms of any sort. - Vital Signs Vital signs: Temp Pulse Resp BP Pulse Ox 98.2 F 64 18 121/61 100 10/16/18 20:27 10/16/18 20:27 10/16/18 20:27 10/16/18 20:27 10/16/18 20:27 - Laboratory Laboratory results interpreted by me: 10/16/18 22:05 Urine Ketones TRACE H Ur Leukocyte Esterase TRACE H Discharge - Discharge Clinical Impression: Bacterial vaginosis Condition: Stable Disposition: HOME, SELF-CARE Instructions: Vaginosis, Bacterial ([facility]) Additional Instructions: Use medicated gel as prescribed. Follow-up with primary care next week. Return to the emergency department with worsening or new concerning symptoms. Referrals: FAUSTINO DIA NP [Primary Care Provider] - Follow up as needed
[2018-10-17 03:35] VITALS: BP 122/70
[2018-10-17 04:38] LABS: CHLAM PCR NOT DETECTED (NOT DETECT); GON PCR NOT DETECTED (NOT DETECT)
== END 2018-10-17 03:05 | disposition home or self-care (01) ==
LOC: ER 20:09
DX: N76.0 Acute vaginitis (principal); B96.89 Other specified bacterial agents as the cause of diseases classified elsewhere; R35.0 Frequency of micturition
CPT/HCPCS: 81001; 81025; 87086; 87210; 87491; 87591; 99283

== ENCOUNTER 2018-11-11 15:16 | Emergency (ER) | payer SELFPAY ==
--- NOTE | 2018-11-11 15:46 | ER Document Report ---
HPI - HPI Patient complains to provider of: urinary frequency Time Seen by Provider: 11/11/18 15:34 Onset: Other - Comes and goes for the past 2 months Quality of pain: Achy Severity: Moderate Pain Level: 3 Context: Patient presents to the emergency department with complaints of frequent urination no abdominal pain vaginal itching sometimes burning with urination. R eports history of DVT for which she is been treated for several times. Believes she still has it. Reports strong pneumonia smelling urine first thing in the morning. Denies other symptoms such as fever vomiting diarrhea. Patient has an appointment with Dr. Lyndsay DIA December 08 for her Pap but cannot wait till then. Patient reports the symptoms come and go for the past 2 months usually after she has sex. She reports one sexual partner no use of condoms. She denies vaginal discharge Associated Symptoms: None Exacerbated by: Denies Relieved by: Denies Similar symptoms previously: Yes Recently seen / treated by doctor: Yes - REPRODUCTIVE Reproductive: DENIES: : Past Medical History - General Information source: Patient Last Menstrual Period: 10/19/18 - Social History Smoking Status: Unknown if Ever Smoked Cigarette use (# per day): No Frequency of alcohol use: None Drug Abuse: None Occupation: call center Family History: Reviewed & Not Pertinent Patient has suicidal ideation: No Patient has homicidal ideation: No Pulmonary Medical History: Reports: Hx Asthma Renal/ Medical History: Reports: Other - STD. Denies: Hx Peritoneal Dialysis Surgical Hx: Negative - Immunizations Immunizations up to date: Yes Hx Diphtheria, Pertussis, Tetanus Vaccination: Yes Vertical Provider Document - CONSTITUTIONAL Agree With Documented VS: Yes Exam Limitations: No Limitations General Appearance: WD/WN, No Apparent Distress - INFECTION CONTROL TRAVEL OUTSIDE OF THE [place] IN LAST 30 DAYS: No - HEENT HEENT: Atraumatic, Normocephalic - NECK Neck: Normal Inspection, Supple - RESPIRATORY Respiratory: Breath Sounds Normal, No Respiratory Distress - CARDIOVASCULAR Cardiovascular: Regular Rate - GI/ABDOMEN Gastrointestinal: Abdomen Soft, Abdomen Non-Tender - REPRODUCTIVE Female Genitalia: Normal Inspection - No vaginal discharge no odor - BACK Back: Normal Inspection. negative: CVA Tenderness-Right, CVA Tenderness-Left - MUSCULOSKELETAL/EXTREMETIES Musculoskeletal/Extremeties: MAEW, JUSTINO - NEURO Level of Consciousness: Awake, Alert, Appropriate Motor/Sensory: No Motor Deficit - DERM Integumentary: Warm, Dry Course - Re-evaluation Re-evalutation: 11/11/18 15:45 Patient instructed on pending pelvic. 11/11/18 UA negative wet mount and STD cultures negative. Patient was instructed on follow-up with the health department for further evaluation recheck. She was verbalized understanding discharged home Dictation of this chart was performed using voice recognition software; therefore, there may be some unintended grammatical errors. - Vital Signs Vital signs: Temp Pulse Resp BP Pulse Ox 98.8 F 76 16 108/65 98 11/11/18 15:25 11/11/18 15:25 11/11/18 15:25 11/11/18 15:25 11/11/18 15:25 Procedures - Pelvic Exam Pelvic exam Time completed: 16:28 Cultures obtained: Yes Wet prep obtained: Yes Herpes culture obtained: No POC sent to lab: No Foreign body removed: No Bimanual exam performed: Yes Witnessed by: morenita reynoso Discharge - Discharge Clinical Impression: Urinary frequency Condition: Stable Disposition: HOME, SELF-CARE Instructions: [facility] Additional Instructions: *You have been evaluated for urinary frequency, vaginal irritation *Your urine does not show an infection no bacterial vaginosis noted with your pelvic. STD cultures will be completed within the next 3 hours. I will contact you if you need further treatment. *Follow up with your TRAVELING PLANT OPERATOR or the health department for recheck within 1 week *Keep your appointment with Dr. Dia *Return to ED for worsening condition, changes, needs Referrals: FAUSTINO DIA NP [Primary Care Provider] - 12/08/18
[2018-11-11 16:00] LABS: APPEARANCE,URINE CLEAR; BILIRUBIN,URINE NEGATIVE (NEGATIVE); COLOR,URINE YELLOW; GLUCOSE, URINE NEGATIVE (NEGATIVE); KETONES,URINE NEGATIVE (NEGATIVE); LEUKOCYTE ESTERASE,URINE NEGATIVE (NEGATIVE); NITRITE,URINE NEGATIVE (NEGATIVE); PROTEIN,URINE NEGATIVE (NEGATIVE); URINE SPECIFIC GRAVITY 1.008; UROBILINOGEN,URINE NEGATIVE mg/dL (<2.0)
[2018-11-11 16:58] LABS: T.VAGINALIS (WET MOUNT) NO TRICHOMONAS SEEN; WBCS (WET MOUNT) 1+ WBCS SEEN; YEAST (WET MOUNT) YEAST SEEN
[2018-11-11 17:30] VITALS: BP 125/73
[2018-11-11 19:48] LABS: CHLAM PCR NOT DETECTED (NOT DETECT); GON PCR NOT DETECTED (NOT DETECT)
== END 2018-11-11 17:30 | disposition home or self-care (01) ==
LOC: ER 15:16
DX: R35.0 Frequency of micturition (principal); R30.0 Dysuria; J45.909 Unspecified asthma, uncomplicated
CPT/HCPCS: 81001; 81025; 87086; 87088; 87186; 87210; 87491; 87591; 99283

== ENCOUNTER 2019-01-08 19:24 | Emergency (ER) | payer SELFPAY ==
[2019-01-08 19:36] VITALS: BP 111/56
--- NOTE | 2019-01-08 20:14 | ER Document Report ---
ED Breast Problem - General Chief Complaint: Breast Problem Stated Complaint: RIGHT BREAST PAIN, VOMITTING, WEAKNESS Time Seen by Provider: 01/08/19 20:00 Primary Care Provider: FAUSTINO DIA NP [Primary Care Provider] - Follow up in 3-5 days Mode of Arrival: Ambulatory Information source: Patient Notes: 23-year-old female presented to ED for complaint of mild soreness to the right breast. She is has been told she had cyst in her breast in the past. She states she had ultrasounds and there were small cyst. She states sometimes the pain goes down her arm. She states there has been no injury. TRAVEL OUTSIDE OF THE [place] IN LAST 30 DAYS: No - HPI Patient complains to provider of: Tenderness. No: Bleeding, Discoloration, Drainage, Injury, Lump, Redness, Swelling Onset: Other - She states they have been intermittent they are worse around her. Onset/Duration: Intermittent Quality of pain: Other - Sore Severity: Mild Pain Level: 1 Discharge description: None Associated Symptoms: None Similar symptoms previously: Yes Recently seen / treated by doctor: No - Related Data Allergies/Adverse Reactions: No Known Allergies Allergy (Verified 11/11/18 15:17) Past Medical History - General Information source: Patient - Social History Smoking Status: Never Smoker Frequency of alcohol use: None Drug Abuse: Marijuana Occupation: Call center Lives with: Alone Family History: Reviewed & Not Pertinent Patient has suicidal ideation: No Patient has homicidal ideation: No - Past Medical History Cardiac Medical History: Reports: None Pulmonary Medical History: Reports: Hx Asthma EENT Medical History: Reports: None Neurological Medical History: Reports: None Endocrine Medical History: Reports: None Renal/ Medical History: Reports: None Malignancy Medical History: Reports: None GI Medical History: Reports: None Musculoskeletal Medical History: Reports None Skin Medical History: Reports None Psychiatric Medical History: Reports: None Traumatic Medical History: Reports: None Infectious Medical History: Reports: None Surgical Hx: Negative Past Surgical History: Reports: None - Immunizations Immunizations up to date: Yes Hx Diphtheria, Pertussis, Tetanus Vaccination: Yes Review of Systems - Review of Systems Constitutional: No symptoms reported EENT: No symptoms reported Cardiovascular: No symptoms reported Respiratory: No symptoms reported Gastrointestinal: No symptoms reported Genitourinary: No symptoms reported Female Genitourinary: Other - Sore tender breast Musculoskeletal: No symptoms reported Skin: No symptoms reported Hematologic/Lymphatic: No symptoms reported Neurological/Psychological: No symptoms reported -: Yes All other systems reviewed and negative Physical Exam - Vital signs Vitals: Temp Pulse Resp BP Pulse Ox 98.3 F 80 15 111/56 L 98 01/08/19 19:35 01/08/19 19:35 01/08/19 19:35 01/08/19 19:35 01/08/19 19:35 Interpretation: Normal - General General appearance: Appears well, Alert - HEENT Head: Normocephalic, Atraumatic Eyes: Normal Pupils: PERRL - Respiratory Respiratory status: No respiratory distress Chest status: Tender - Right breast tender at 10:00 and 3:00 no firm nodules possible cyst at these areas Breath sounds: Normal Chest palpation: Normal - Cardiovascular Rhythm: Regular Heart sounds: Normal auscultation Murmur: No - Abdominal Inspection: Normal Distension: No distension Bowel sounds: Normal Tenderness: Nontender Organomegaly: No organomegaly - Back Back: Normal, Nontender - Extremities General upper extremity: Normal inspection, Nontender, Normal color, Normal ROM, Normal temperature General lower extremity: Normal inspection, Nontender, Normal color, Normal ROM, Normal temperature, Normal weight bearing. No: Zahra's sign - Neurological Neuro grossly intact: Yes Cognition: Normal Orientation: AAOx4 [place] Coma Scale Eye Opening: Spontaneous [place] Coma Scale Verbal: Oriented Maidha Coma Scale Motor: Obeys Commands Madiha Coma Scale Total: 15 Speech: Normal Motor strength normal: LUE, RUE, LLE, RLE Sensory: Normal - Psychological Associated symptoms: Normal affect, Normal mood - Skin Skin Temperature: Warm Skin Moisture: Dry Skin Color: Normal Course - Re-evaluation Re-evalutation: 01/08/19 20:12 Patient has tenderness to the right breast at 10:00 and 3:00. Patient was instructed to follow-up with her primary care doctor in the next 3 to 5 days and have a follow-up exam and if she continued to have tenderness to please have primary care order an ultrasound. Patient verbalized understanding and agreement with treatment plan. Patient states she has had tenderness in the past and was told that she had some breast cyst. Patient verbalized understanding and agreement with treatment plan. - Vital Signs Vital signs: Temp Pulse Resp BP Pulse Ox 98.3 F 80 15 111/56 L 98 01/08/19 19:35 01/08/19 19:35 01/08/19 19:35 01/08/19 19:35 01/08/19 19:35 Discharge - Discharge Clinical Impression: Right breast tenderness in female Condition: Stable Disposition: HOME, SELF-CARE Additional Instructions: Breast Fibrocystic Disease You have a breast lump or cyst, which we think is most likely due to fibrocystic disease. This is very common in women and is usually a benign condition. These breast masses form under the influence of female hormones (estrogen and progesterone). They occur most often in the upper, outer portion of the breast. Fibrocystic lumps can become more painful and tender just before your period. Most breast lumps and cysts are benign. But we want to be certain. Suspicious lumps may need a biopsy or needle aspiration. More innocent-seeming lumps may be evaluated with mammography or ultrasound. Be sure to see your doctor for follow-up care. See the doctor or return here if you develop nipple discharge or bleeding, severe pain, tenderness, redness in your breast. Acetaminophen Acetaminophen may be taken for pain relief or fever control. It's much safer than aspirin, offering a wider range of "safe" dosages. It is safe during . Some brand names are Tylenol, Panadol, Datril, Anacin 3, Tempra, and Liquiprin. Acetaminophen can be repeated every four hours. The following are maximum recommended dosages: WEIGHT Dose Drops Elixir Chewable(80mg) (LBS.) drprs=droppers tsp=teaspoon 6 40 mg .4 ml (1/2) 6-11 80 mg .8 ml (full) 1/2 tsp 1 tab 12-16 120 mg 1 1/2 drprs 3/4 tsp 1 1/2 tabs 17-23 160 mg 2 drprs 1 tsp 2 tabs 24-30 240 mg 3 drprs 1 1/2 tsp 3 tabs 30-35 320 mg 2 tsp 4 tabs 36-41 360 mg 2 1/4 tsp 4 1/2 tabs 42-47 400 mg 2 1/2 tsp 5 tabs 48-53 480 mg 3 tsp 6 tabs 54-59 520 mg 3 1/4 tsp 6 1/2 tabs 60-64 560 mg 3 1/2 tsp 7 tabs 65-70 600 mg 3 3/4 tsp 7 1/2 tabs 71-76 640 mg 4 tsp 8 tabs 77-82 720 mg 4 1/2 tsp 9 tabs 83-88 800 mg 5 tsp 10 tabs >89 pounds or adults 650 mg to 900 mg Acetaminophen can be repeated every four hours. Maximum daily dose not to exceed 4000 mg. These maximum recommended dosages are slightly higher than the dosages written on the product container, but these dosages are very safe and well below the toxic dosage for acetaminophen. Ibuprofen Ibuprofen is an excellent, safe drug for pain control. In addition, it has potent antiinflammatory effects which are beneficial, especially in the treatment of injuries, arthritis, or tendonitis. It's best to take ibuprofen with food. Persons with ulcer disease or allergy to aspirin should notify their physician of this before taking ibuprofen. Take the medication exactly as prescribed. Don't take additional doses unless instructed to do so by your doctor. If you develop wheezing, shortness of breath, hives, faintness, stomach pain, vomiting, or dark black stools, return for re-evaluation at once. FOLLOW-UP CARE: If you have been referred to a physician for follow-up care, call the physicians office for an appointment as you were instructed or within the next two days. If you experience worsening or a significant change in your symptoms, notify the physician immediately or return to the Emergency Department at any time for re-evaluation. Forms: Smoking Cessation Education, Return to Work Referrals: FAUSTINO DIA NP [Primary Care Provider] - Follow up in 3-5 days
== END 2019-01-08 20:26 | disposition home or self-care (01) ==
LOC: ER 19:24
DX: N64.59 Other signs and symptoms in breast (principal); R11.10 Vomiting, unspecified; R53.1 Weakness; F12.10 Cannabis abuse, uncomplicated
CPT/HCPCS: 99283

== ENCOUNTER 2019-01-25 20:43 | Emergency (ER) | payer SELFPAY ==
[2019-01-25 23:51] LABS: APPEARANCE,URINE SLIGHTLY-CLOUDY; BILIRUBIN,URINE NEGATIVE (NEGATIVE); COLOR,URINE YELLOW; GLUCOSE, URINE NEGATIVE (NEGATIVE); KETONES,URINE NEGATIVE (NEGATIVE); LEUKOCYTE ESTERASE,URINE NEGATIVE (NEGATIVE); NITRITE,URINE NEGATIVE (NEGATIVE); PROTEIN,URINE NEGATIVE (NEGATIVE); URINE SPECIFIC GRAVITY 1.023; UROBILINOGEN,URINE NEGATIVE mg/dL (<2.0)
[2019-01-26 01:09] LABS: RBCS (WET MOUNT) NO RBCS SEEN; T.VAGINALIS (WET MOUNT) NO TRICHOMONAS SEEN; WBCS (WET MOUNT) NO WBCS SEEN; YEAST (WET MOUNT) NO YEAST SEEN
--- NOTE | 2019-01-26 01:25 | ER Document Report ---
ED General - General Chief Complaint: STD Exposure Stated Complaint: VAGINAL DISCOMFORT Time Seen by Provider: 01/25/19 23:39 Primary Care Provider: FAUSTINO DIA NP [Primary Care Provider] - Follow up as needed Notes: Patient is otherwise healthy 23-year-old female presents to the emergency department for vaginal discharge. Patient states she had unprotected sex recently and approximately on Friday started with white malodorous itchy vaginal discharge. Patient's denying any abdominal pain, fevers, dysuria. TRAVEL OUTSIDE OF THE [place] IN LAST 30 DAYS: No - Related Data Allergies/Adverse Reactions: No Known Allergies Allergy (Verified 11/11/18 15:17) Past Medical History - General Information source: Patient - Social History Smoking Status: Unknown if Ever Smoked Family History: Reviewed & Not Pertinent Patient has suicidal ideation: No Patient has homicidal ideation: No Pulmonary Medical History: Reports: Hx Asthma Renal/ Medical History: Denies: Hx Peritoneal Dialysis - Immunizations Immunizations up to date: Yes Hx Diphtheria, Pertussis, Tetanus Vaccination: Yes Review of Systems - Review of Systems Constitutional: denies: Fever EENT: No symptoms reported Cardiovascular: No symptoms reported Respiratory: No symptoms reported Gastrointestinal: No symptoms reported Genitourinary: See HPI Female Genitourinary: See HPI Musculoskeletal: No symptoms reported Skin: No symptoms reported Hematologic/Lymphatic: No symptoms reported Neurological/Psychological: No symptoms reported Physical Exam - Vital signs Vitals: Temp Pulse Resp BP Pulse Ox 98.4 F 91 20 116/66 99 01/25/19 21:27 01/25/19 21:27 01/25/19 21:27 01/25/19 21:27 01/25/19 21:27 - Notes Notes: GENERAL: Alert, interacts well. No acute distress. HEAD: Normocephalic, atraumatic. EYES: Pupils equal, round, and reactive to light. Extraocular movements intact. ENT: Oral mucosa moist, tongue midline. NECK: Full range of motion. Supple. Trachea midline. LUNGS: Clear to auscultation bilaterally, no wheezes, rales, or rhonchi. No respiratory distress. HEART: Regular rate and rhythm. No murmur ABDOMEN: Soft, non-tender. Non-distended. Bowel sounds present in all 4 quadrants. EXTREMITIES: Moves all 4 extremities spontaneously. No edema, normal radial and dorsalis pedis pulses bilaterally. No cyanosis. BACK: no cervical, thoracic, lumbar midline tenderness. No saddle anesthesia, normal distal neurovascular exam. NEUROLOGICAL: Alert and oriented x3. Normal speech. cranial nerves II through XII grossly intact PSYCH: Normal affect, normal mood. SKIN: Warm, dry, normal turgor. No rashes or lesions noted. Pelvic: [employer] Mary PCT, scant yellowish discharge noted in the cul-de-sac, no cervical motion tenderness, no adnexal tenderness noted bilaterally. Course - Re-evaluation Re-evalutation: 01/26/19 02:06 Laboratory 01/25/19 01/25/19 01/26/19 23:21 23:21 00:48 Urine Color YELLOW Cancelled Urine Appearance SLIGHTLY-CLOUDY Cancelled Urine pH 7.0 Cancelled Ur Specific Bliss 1.023 Cancelled Urine Protein NEGATIVE Cancelled Urine Glucose (UA) NEGATIVE Cancelled Urine Ketones NEGATIVE Cancelled Urine Blood NEGATIVE Cancelled Urine Nitrite NEGATIVE Cancelled Urine Bilirubin NEGATIVE Cancelled Urine Urobilinogen NEGATIVE Cancelled Ur Leukocyte Esterase NEGATIVE Cancelled Urine WBC (Auto) 4 Cancelled Urine RBC (Auto) 1 Cancelled U Hyaline Cast (Auto) Cancelled Urine Bacteria (Auto) TRACE Cancelled Urine Red Cell Clumps Cancelled Urine WBC Clumps Cancelled Squamous Epi Cells Auto 15 Cancelled U Non-Squamous Epis Auto Cancelled Calcium Carbonate Cryst Cancelled Calcium Phosphate Cryst Cancelled Calcium Oxalate Cr Auto Cancelled Leucine Crystals Cancelled Cystine Crystals Cancelled Uric Acid Cryst (Auto) Cancelled Triple Phos Cryst (Auto) Cancelled Tyrosine Crystals Cancelled Amorphous Sediment Auto Cancelled Cellular Casts Cancelled Epithelial Casts (Auto) Cancelled Fatty Casts Cancelled Granular Casts (Auto) Cancelled Waxy Casts (Auto) Cancelled Broad Casts Cancelled RBC Casts (Auto) Cancelled WBC Casts (Auto) Cancelled Urine Mucus (Auto) MOD Cancelled U Trichomonas (Auto) Cancelled Ur Yeast w Hyphae Cancelled Urine Yeast (Budding) Cancelled Urine Ascorbic Acid 20 H Cancelled Urine HCG, Qual NEGATIVE Trichomonas (Wet Prep) NO TRICHOMONAS SEEN Vaginal WBC NO WBCS SEEN Vaginal RBC NO RBCS SEEN Vaginal Yeast NO YEAST SEEN Patient's wet mount shows no signs of bacterial vaginosis, no signs of yeast, no signs of trichomonas Patient was prophylactically treated for gonorrhea and chlamydia in the emergency department. Discussed with patient she needs to speak with all sexual contacts about being tested and treated as well. At this time will discharge with return precautions and follow-up recommendations. Verbal discharge instructions given a the bedside and opportunity for questions given. Medication warnings reviewed. Patient is in agreement with this plan and has verbalized understanding of return precautions and the need for primary care follow-up in the next 24-72 hours. This medical record was dictated with voice recognizing software. There may be grammatical, syntax errors that are unintended. - Vital Signs Vital signs: Temp Pulse Resp BP Pulse Ox 98.4 F 91 20 116/66 99 01/25/19 21:27 01/25/19 21:27 01/25/19 21:27 01/25/19 21:27 01/25/19 21:27 - Laboratory Laboratory results interpreted by me: 01/25/19 23:21 Urine Ascorbic Acid 20 H Discharge - Discharge Clinical Impression: Vaginal discharge Condition: Stable Disposition: HOME, SELF-CARE Instructions: Gonorrhea (OM), Chlamydia (OM) Additional Instructions: As we discussed you have been seen and treated in the emergency department for your vaginal discharge. You have been prophylactically treated for your gonorrhea and chlamydia. Please make sure you call [phone] for your culture results. Please also make sure you speak with all your sexual contacts while being tested and treated. Please follow-up with your primary care provider in the next 24 to 48 hours, return to the emergency room for any further concerns. Referrals: FAUSTINO DIA, SENIOR DATABASE ENGINEER [Primary Care Provider] - Follow up as needed
[2019-01-26] MEDS ORDERED: AZITHROMYCIN 250 MG TABLET PO ONE (01:44)
[2019-01-26] MEDS ORDERED: CEFTRIAXONE INJ 250 MG VIAL IM ONE (01:44)
[2019-01-26 02:24] VITALS: BP 112/97
[2019-01-26 02:32] LABS: CHLAM PCR NOT DETECTED (NOT DETECT)
== END 2019-01-26 02:23 | disposition home or self-care (01) ==
LOC: ER 20:43
DX: N89.8 Other specified noninflammatory disorders of vagina (principal); Z20.2 Contact with and (suspected) exposure to infections with a predominantly sexual mode of transmission
CPT/HCPCS: 87086; 87210; 81025; 87088; 81001; 87491; 87591; J0696; 96372; 99283

== ENCOUNTER 2019-02-07 13:37 | Emergency (ER) | payer SELFPAY ==
[2019-02-07] MEDS ORDERED: CEFTRIAXONE INJ 250 MG VIAL IM ONE (14:48)
[2019-02-07] MEDS ORDERED: AZITHROMYCIN 250 MG TABLET PO ONE (14:49)
[2019-02-07] MEDS ORDERED: LIDOCAINE 1% INJ (10 MG/ML) 10 ML MDV INJ ONE (14:49)
--- NOTE | 2019-02-07 14:50 | ER Document Report ---
HPI - HPI Patient complains to provider of: std check Time Seen by Provider: 02/07/19 14:39 Pain Level: 1 Context: 23-year-old female presents the emergency department for STD check. She was seen here 1 week ago and a pelvic exam was performed, she was treated prophylactically for gonorrhea and chlamydia, and went home. She called the following day and initially was told by a male "you are good", then she received a call the following day from the culture nursing she was positive for gonorrhea. She did have sex with her boyfriend in the interim so she is concerned that she may be reinfected. She denies any lower abdominal pain, any abnormal vaginal discharge, any dysuria, urinary frequency, urinary urgency. Denies any fevers or chills, nausea or vomiting. No other complaints - REPRODUCTIVE LMP: 01/21/19 Reproductive: DENIES: : Past Medical History - Social History Smoking Status: Unknown if Ever Smoked Family History: Reviewed & Not Pertinent Pulmonary Medical History: Reports: Hx Asthma Renal/ Medical History: Denies: Hx Peritoneal Dialysis - Immunizations Immunizations up to date: Yes Hx Diphtheria, Pertussis, Tetanus Vaccination: Yes Vertical Provider Document - CONSTITUTIONAL Notes: PHYSICAL EXAMINATION: Reviewed vital signs and charting by RN GENERAL: Alert, interacts well. No acute distress. HEAD: Normocephalic, atraumatic. EYES: Pupils equal and round. Extraocular movements intact. ENT: Oral mucosa moist, tongue midline. NECK: Full range of motion. Trachea midline. ABDOMEN: soft, non-tender. No distention. : deferred EXTREMITIES: Moves all 4 extremities spontaneously. No edema, No cyanosis. PSYCH: Normal affect, normal mood. SKIN: Warm, dry, normal turgor. No rashes or lesions noted. - INFECTION CONTROL TRAVEL OUTSIDE OF THE [place] IN LAST 30 DAYS: No Course - Re-evaluation Re-evalutation: 02/07/19 14:46 Plan to get urinalysis to check for gonorrhea/chlamydia. Patient agrees to preemptive treatment. I explained to patient that she must refrain from having sex for 7 days and her partner must get tested and potentially treated. Patient agrees with plan and will be notified of her results if any are positive. 02/07/19 14:49 - Vital Signs Vital signs: Temp Pulse Resp BP Pulse Ox 98.6 F 72 16 108/65 100 02/07/19 13:48 02/07/19 13:48 02/07/19 13:48 02/07/19 13:48 02/07/19 13:48 Discharge - Discharge Clinical Impression: Possible exposure to STD Condition: Good Disposition: HOME, SELF-CARE Additional Instructions: You were seen in the emergency department this afternoon for concern for STD exposure. Testing was completed and it will take several hours for results. You agreed to be treated prophylactically like you did last time. Please refrain from having sex for at least 7 days and ensure that your partner gets tested and treated. If you develop fevers, severe abdominal pain, abnormal vaginal discharge or pelvic cramping, urinary tract infection type symptoms, intractable nausea or vomiting, or any other concerning symptoms please immediately return to the emergency department. Referrals: FAUSTINO DIA NET WEB APPLICATION DEVELOPER [Primary Care Provider] - Follow up as needed
[2019-02-07 15:34] LABS: AMORPHOUS SEDIMENT,URINE TRACE /HPF; APPEARANCE,URINE CLOUDY; BILIRUBIN,URINE NEGATIVE (NEGATIVE); COLOR,URINE YELLOW; GLUCOSE, URINE NEGATIVE (NEGATIVE); KETONES,URINE NEGATIVE (NEGATIVE); LEUKOCYTE ESTERASE,URINE TRACE (NEGATIVE); NITRITE,URINE NEGATIVE (NEGATIVE); PROTEIN,URINE 30 mg/dL (NEGATIVE); URINE SPECIFIC GRAVITY 1.019; UROBILINOGEN,URINE NEGATIVE mg/dL (<2.0)
[2019-02-07 16:45] VITALS: BP 111/60
[2019-02-07 17:02] LABS: CHLAM PCR NOT DETECTED (NOT DETECT)
== END 2019-02-07 16:45 | disposition home or self-care (01) ==
LOC: ER 13:37
DX: Z20.2 Contact with and (suspected) exposure to infections with a predominantly sexual mode of transmission (principal)
CPT/HCPCS: 99283; 96374; 96375; 81025; 81001; 87491; 87591; J0696

== ENCOUNTER 2019-05-20 14:04 | Emergency (ER) | payer SELFPAY ==
[2019-05-20] MEDS ORDERED: FAMOTIDINE 20 MG TABLET PO ONE (15:01)
--- NOTE | 2019-05-20 15:05 | ER Document Report ---
HPI - HPI Time Seen by Provider: 05/20/19 14:54 Pain Level: 0 Context: Patient is a 23-year-old female who presents the emergency department with a chief complaint of a rash that comes and goes. Started last week patient states that it is itchy. Patient has a history of asthma. She is unsure if she is ever had eczema before. She attempted to take Benadryl, but stopped taking it because it, "was not working." She was only taking the Benadryl once a day. Patient denies any shortness of breath, difficulty breathing, sore throat, or any other symptoms. - CONSTITUTIONAL Constitutional: DENIES: Fever, Chills - EENT EENT: DENIES: Sore Throat, Ear Pain, Eye problems - NEURO Neurology: DENIES: Headache, Weakness, Vision blurred, Dizzinesss / Vertigo - CARDIOVASCULAR Cardiovascular: DENIES: Chest pain - RESPIRATORY Respiratory: DENIES: Trouble Breathing, Coughing - GASTROINTESTINAL Gastrointestinal: DENIES: Abdominal Pain, Black / Bloody Stools - URINARY Urinary: DENIES: Dysuria, Urgency, Frequency - REPRODUCTIVE Reproductive: DENIES: : - MUSCULOSKELETAL Musculoskeletal: DENIES: Extremity pain - DERM Skin Color: Normal Skin Problems: Rash Past Medical History - Social History Smoking Status: Never Smoker Chew tobacco use (# tins/day): No Frequency of alcohol use: None Drug Abuse: None Family History: Reviewed & Not Pertinent Patient has suicidal ideation: No Patient has homicidal ideation: No Pulmonary Medical History: Reports: Hx Asthma Renal/ Medical History: Denies: Hx Peritoneal Dialysis - Immunizations Immunizations up to date: Yes Hx Diphtheria, Pertussis, Tetanus Vaccination: Yes Vertical Provider Document - CONSTITUTIONAL Agree With Documented VS: Yes Exam Limitations: No Limitations General Appearance: No Apparent Distress - INFECTION CONTROL TRAVEL OUTSIDE OF THE [place] IN LAST 30 DAYS: No - HEENT HEENT: Atraumatic, Normocephalic, PERRLA - NECK Neck: Normal Inspection, Supple - RESPIRATORY Respiratory: No Respiratory Distress - CARDIOVASCULAR Cardiovascular: Regular Rhythm Pulses: Bounding: Radial - MUSCULOSKELETAL/EXTREMETIES Musculoskeletal/Extremeties: FROM - NEURO Level of Consciousness: Awake, Alert, Appropriate Motor/Sensory: No Motor Deficit, No Sensory Deficit - DERM Integumentary: Warm, Dry, No Rash Course - Re-evaluation Re-evalutation: 05/20/19 At this time, no evidence of an acute erythematous rash noted over the patient's body. The patient has an area to the left side of her face that looks like a scarred area from where she was scratching. I advised the patient not to scratch anymore. The patient has a history of asthma, therefore I suspect her "rash" that she is having is most likely eczema. Patient states that she uses [employer] lotion. I will prescribe her some instead of Soma and Pepcid to help with her symptoms. She will follow-up with her primary care provider. I have a very low suspicion for cellulitis, necrotizing fasciitis, or any life- threatening etiology at this time. Follow-up precautions were given. Verbal discharge instructions were given to the patient. They verbalized understanding. They are stable for discharge. - Vital Signs Vital signs: Temp Pulse Resp BP Pulse Ox 98.4 F 81 20 135/69 H 99 05/20/19 14:57 05/20/19 14:57 05/20/19 14:57 05/20/19 14:57 05/20/19 14:57 Discharge - Discharge Clinical Impression: Rash Condition: Stable Disposition: HOME, SELF-CARE Additional Instructions: You were seen today in the emergency department for a rash. Please use Cetaphil lotion to help with your rash. Please also take Pepcid to help with itchiness. Please follow-up with your primary care provider regards to this visit. If you develop shortness of breath, difficulty breathing, or any symptoms that are worrisome to you, please return to the emergency department. Prescriptions: Emollient Combination No.40 [Cetaphil] 473 ml TP BID #1 lotion Famotidine [Pepcid 20 mg Tablet] 20 mg PO BID #20 tablet Forms: Return to Work Referrals: FAUSTINO DIA NP [Primary Care Provider] - Follow up in 1 week
[2019-05-20 15:18] VITALS: BP 119/82
== END 2019-05-20 15:17 | disposition home or self-care (01) ==
LOC: ER 14:04
DX: R21 Rash and other nonspecific skin eruption (principal); L29.9 Pruritus, unspecified; J45.909 Unspecified asthma, uncomplicated
CPT/HCPCS: 99282

== ENCOUNTER 2020-04-12 22:16 | Emergency (ER) | payer SELFPAY ==
--- NOTE | 2020-04-12 22:35 | ER Document Report ---
ED Medical Screen (RME) - General Chief Complaint: Abdominal Pain Stated Complaint: ABDOMINAL PAIN X1WEEK Time Seen by Provider: 04/12/20 22:24 Primary Care Provider: FAUSTINO DIA NP [Primary Care Provider] - Follow up as needed Information source: Patient TRAVEL OUTSIDE OF THE [place] IN LAST 30 DAYS: No - HPI Notes: Patient is a 24 y/o female who presents with left sided abdominal pain that radiates to her left back that began one week ago. She endorses nausea, dysuria, urinary urgency and urinary frequency. She denies fever, vomiting, and hematu rabia. She tried taking azo at the onset of her symptoms but it worsened her nausea. - Related Data Allergies/Adverse Reactions: No Known Allergies Allergy (Verified 04/12/20 22:23) Home Medications: HERP MEDICATION Past Medical History - Social History Frequency of alcohol use: None Drug Abuse: Marijuana Pulmonary Medical History: Reports: Hx Asthma Renal/ Medical History: Denies: Hx Peritoneal Dialysis - Immunizations Immunizations up to date: Yes Hx Diphtheria, Pertussis, Tetanus Vaccination: Yes Physical Exam - Vital signs Vitals: Temp Pulse Resp BP Pulse Ox 97.9 F 77 18 149/89 H 100 04/12/20 22:22 04/12/20 22:22 04/12/20 22:22 04/12/20 22:22 04/12/20 22:22 - Abdominal Distension: No distension Bowel sounds: Normal Tenderness: Nontender Course - Re-evaluation Re-evalutation: I have greeted and performed a rapid initial assessment of this patient. A comprehensive ED assessment and evaluation of the patient, analysis of test results and completion of medical decision making process will be conducted by an additional ED providers. - Vital Signs Vital signs: Temp Pulse Resp BP Pulse Ox 97.9 F 77 18 149/89 H 100 04/12/20 22:22 04/12/20 22:22 04/12/20 22:22 04/12/20 22:22 04/12/20 22:22 Doctor's Discharge - Discharge Referrals: FAUSTINO DIA NP [Primary Care Provider] - Follow up as needed
[2020-04-12 22:55] LABS: ABSOLUTE BASOPHILS # (AUTO) 0.1 10^3/uL (0.0-0.2); ABSOLUTE EOSINOPHILS # (AUTO) 0.1 10^3/uL (0.0-0.6); ABSOLUTE LYMPHOCYTES (AUTO) 2.7 10^3/uL (0.5-4.7); ABSOLUTE MONOCYTES (AUTO) 0.6 10^3/uL (0.1-1.4); ABSOLUTE NEUT (AUTO) 4.1 10^3/uL (1.7-8.2); BASOPHILS % (AUTO) 0.8 % (0-2); EOSINOPHILS % (AUTO) 1.8 % (0-6); HEMATOCRIT 39.2 % (36.0-47.0); HEMOGLOBIN 12.8 g/dL (12.0-15.5); LYMPHOCYTES % (AUTO) 35.5 % (13-45); MEAN CORPUSCULAR HEMOGLOBIN 25.4 pg (27.0-33.4); MEAN CORPUSCULAR HGB CONC 32.6 g/dL (32.0-36.0); MEAN CORPUSCULAR VOLUME 78 fl (80-97); MONOCYTES % (AUTO) 8.3 % (3-13); PLATELET COUNT 301 10^3/uL (150-450); RED BLOOD COUNT 5.03 10^6/uL (3.72-5.28); SEGMENTED NEUTROPHILS % (AUTO) 53.6 % (42-78); TOTAL CELLS COUNTED % (AUTO) 100 %; WHITE BLOOD COUNT 7.6 10^3/uL (4.0-10.5)
[2020-04-12 23:06] LABS: APPEARANCE,URINE SLIGHTLY-CLOUDY; BILIRUBIN,URINE NEGATIVE (NEGATIVE); COLOR,URINE YELLOW; GLUCOSE, URINE NEGATIVE (NEGATIVE); KETONES,URINE NEGATIVE (NEGATIVE); LEUKOCYTE ESTERASE,URINE MODERATE (NEGATIVE); NITRITE,URINE NEGATIVE (NEGATIVE); PROTEIN,URINE NEGATIVE (NEGATIVE); URINE SPECIFIC GRAVITY 1.013; UROBILINOGEN,URINE NEGATIVE mg/dL (<2.0)
[2020-04-12 23:52] LABS: ALBUMIN 4.7 g/dL (3.5-5.0); ALKALINE PHOSPHATASE 108 U/L (38-126); ANION GAP 14 (5-19); ASPARTATE AMINO TRANSFERASE 24 U/L (14-36); BILIRUBIN,DIRECT 0.2 mg/dL (0.0-0.4); BILIRUBIN,TOTAL 0.4 mg/dL (0.2-1.3); BLOOD UREA NITROGEN 11 mg/dL (7-20); CALCIUM 9.7 mg/dL (8.4-10.2); CARBON DIOXIDE 23 mmol/L (22-30); CHLORIDE 102 mmol/L (98-107); GLUCOSE 85 mg/dL (75-110); POTASSIUM 3.7 mmol/L (3.6-5.0); TOTAL PROTEIN 8.3 g/dL (6.3-8.2)
[2020-04-13] MEDS ORDERED: CEFTRIAXONE 1 GM/D5W RTU 1 GM/50 ML RTUPB IV ONE (00:02)
[2020-04-13] MEDS ORDERED: PHENAZOPYRIDINE HCL 200 MG TABLET PO ONE (00:02)
[2020-04-13] MEDS ORDERED: ONDANSETRON HCL INJ/PF 4 MG/2 ML SDV IV ONE (00:02)
[2020-04-13] MEDS ORDERED: CEFTRIAXONE INJ 1000 MG VIAL IM ONE (00:09)
[2020-04-13] MEDS ORDERED: ONDANSETRON 4 MG TAB.RAPDIS PO ONE (00:09)
--- NOTE | 2020-04-13 00:12 | ER Document Report ---
ED General - General Chief Complaint: Abdominal Pain Stated Complaint: ABDOMINAL PAIN X1WEEK Time Seen by Provider: 04/12/20 22:24 Primary Care Provider: FAUSTINO DIA NP [Primary Care Provider] - Follow up as needed Notes: Patient is a 24-year-old -[place] female with a past medical history significant for frequent UTIs who presents to the emergency department today with a chief complaint of left flank pain and dysuria. She states over the past week she has had the discomfort radiating from the left lower abdomen around the left flank. States is associated with a burning after urination and at the end of urination. She denies any vaginal discharge or bleeding. No vomiting or diarrhea. No nausea. No fever. TRAVEL OUTSIDE OF THE [place] IN LAST 30 DAYS: No - Related Data Allergies/Adverse Reactions: No Known Allergies Allergy (Verified 04/12/20 22:23) Home Medications: HERP MEDICATION Past Medical History - General Information source: Patient - Social History Smoking Status: Never Smoker Frequency of alcohol use: None Drug Abuse: Marijuana Family History: Reviewed & Not Pertinent Pulmonary Medical History: Reports: Hx Asthma Renal/ Medical History: Denies: Hx Peritoneal Dialysis - Immunizations Immunizations up to date: Yes Hx Diphtheria, Pertussis, Tetanus Vaccination: Yes Review of Systems - Review of Systems Constitutional: denies: Fever EENT: denies: Nose pain Cardiovascular: denies: Orthopnea Respiratory: denies: Short of breath Gastrointestinal: denies: Poor appetite Genitourinary: denies: Incontinence Female Genitourinary: denies: Heavy/abnormal periods Musculoskeletal: denies: Joint swelling Skin: denies: Lesions Hematologic/Lymphatic: denies: Easy bleeding Neurological/Psychological: denies: Gait changes Physical Exam - Vital signs Vitals: Temp Pulse Resp BP Pulse Ox 97.9 F 77 18 149/89 H 100 04/12/20 22:22 04/12/20 22:22 04/12/20 22:22 04/12/20 22:22 04/12/20 22:22 - General General appearance: Appears well, Alert In distress: None - Respiratory Respiratory status: No respiratory distress Chest status: Nontender Breath sounds: Normal Chest palpation: Normal - Cardiovascular Rhythm: Regular Heart sounds: Normal auscultation - Abdominal Inspection: Normal Distension: No distension Bowel sounds: Normal Tenderness: Tender - Left upper abdomen and left flank - Extremities General upper extremity: No: Edema General lower extremity: No: Edema - Neurological Neuro grossly intact: Yes Cognition: Normal Orientation: AAOx4 - Psychological Associated symptoms: Normal affect, Normal mood - Skin Skin Temperature: Warm Skin Moisture: Dry Skin Color: Normal Course - Re-evaluation Re-evalutation: 04/13/20 00:36 History physical and work-up consistent with a UTI. Normal white count. Afebrile. Nontoxic. She is given Rocephin IM here in the department with some Zofran and Pyridium. She will be sent home with Bactrim p.o., Zofran ODT and Pyridium. Encouraged her to push clear fluids and rest. Counseled her regarding the importance of outpatient follow-up in 2 to 3 days for reevaluation. Advised that she return here or any ER immediately with any new, persistent or worsening symptoms. She verbalized understood and agreed. - Vital Signs Vital signs: Temp Pulse Resp BP Pulse Ox 97.9 F 77 18 149/89 H 100 04/12/20 22:22 04/12/20 22:22 04/12/20 22:22 04/12/20 22:22 04/12/20 22:22 - Laboratory Result Diagrams: 04/12/20 22:38 04/12/20 22:38 Laboratory results interpreted by me: 04/12/20 04/12/20 04/12/20 22:38 22:38 22:38 MCV 78 L MCH 25.4 L RDW 17.0 H Total Protein 8.3 H Urine Blood SMALL H Ur Leukocyte Esterase MODERATE H Discharge - Discharge Clinical Impression: UTI (urinary tract infection) Qualifiers: Urinary tract infection type: site unspecified Hematuria presence: without hematuria Qualified Code(s): N39.0 - Urinary tract infection, site not specified Condition: Stable Disposition: HOME, SELF-CARE Instructions: Urinary Tract Infection ([facility]), Trimethoprim-Sulfa ([facility]) Additional Instructions: Follow-up with your regular doctor in 2 to 3 days for reevaluation as well as schedule an appointment with your salesperson meats. Return here or any ER immediately with any new, persistent or worsening symptoms. Prescriptions: Sulfamethoxazole/Trimethoprim [Bactrim Ds Tablet] 1 each PO BID #14 tablet Phenazopyridine HCl [Pyridium 200 mg Tablet] 200 mg PO TID #15 tablet Ondansetron [Zofran Odt 4 mg Tablet] 4 mg PO Q8 PRN #15 tab.rapdis PRN Reason: Referrals: FAUSTINO DIA, GL[employer] BLOWING LATHE OPERATOR [Primary Care Provider] - Follow up as needed
[2020-04-13 01:01] VITALS: BP 138/67
== END 2020-04-13 00:55 | disposition home or self-care (01) ==
LOC: ER 22:16
DX: N39.0 Urinary tract infection, site not specified (principal); R10.9 Unspecified abdominal pain; R30.0 Dysuria; R10.32 Left lower quadrant pain; R30.9 Painful micturition, unspecified; J45.909 Unspecified asthma, uncomplicated
CPT/HCPCS: 99284; 96372; 36415; 83690; 85025; 81025; 80053; 81001; S0119; J3490; J0696

== ENCOUNTER 2020-05-10 20:58 | Emergency (ER) | payer SELFPAY ==
--- NOTE | 2020-05-10 23:39 | ER Document Report ---
ED Medical Screen (RME) - General Chief Complaint: Vaginal Discharge Stated Complaint: VAGINAL DISCHARGE Time Seen by Provider: 05/10/20 23:35 Primary Care Provider: FAUSTINO DIA NP [Primary Care Provider] - Follow up as needed Notes: Patient presents to the ER evaluation of low back pain with lower abdominal pain and a white vaginal discharge times approximately 3 weeks. She denies dysuria. She denies fever. She was diagnosed with a recent UTI at this facility. She was given an antibiotic but states her symptoms did not improve. She is in a monogamous relationship and is sexually active. Exam CONSTITUTIONAL: Well appearing in no acute distress PULMONARY: Normal chest rise and fall, no respiratory distress or stridor CARDIOVASCULAR: Regular rate, distal extremities are warm and well perfused I have greeted and performed a rapid initial assessment of this patient. A comprehensive ED assessment and evaluation of the patient, analysis of test results and completion of the medical decision making process will be conducted by additional ED providers. Dictation of this chart was performed using voice recognition software; therefore, there may be some unintended grammatical errors. TRAVEL OUTSIDE OF THE [place] IN LAST 30 DAYS: No - Related Data Allergies/Adverse Reactions: No Known Allergies Allergy (Verified 04/12/20 22:23) Home Medications: valcylador Past Medical History - Social History Drug Abuse: Marijuana Pulmonary Medical History: Reports: Hx Asthma Renal/ Medical History: Denies: Hx Peritoneal Dialysis - Immunizations Immunizations up to date: Yes Hx Diphtheria, Pertussis, Tetanus Vaccination: Yes Physical Exam - Vital signs Vitals: Temp Pulse Resp BP Pulse Ox 98.3 F 70 18 124/73 100 05/10/20 21:07 05/10/20 21:07 05/10/20 21:07 05/10/20 21:07 05/10/20 21:07 Course - Vital Signs Vital signs: Temp Pulse Resp BP Pulse Ox 98.3 F 70 18 124/73 100 05/10/20 21:07 05/10/20 21:07 05/10/20 21:07 05/10/20 21:07 05/10/20 21:07 Doctor's Discharge - Discharge Referrals: FAUSTINO DIA NP [Primary Care Provider] - Follow up as needed
[2020-05-11 01:46] LABS: ABSOLUTE BASOPHILS # (AUTO) 0.1 10^3/uL (0.0-0.2); ABSOLUTE EOSINOPHILS # (AUTO) 0.1 10^3/uL (0.0-0.6); ABSOLUTE LYMPHOCYTES (AUTO) 2.9 10^3/uL (0.5-4.7); ABSOLUTE MONOCYTES (AUTO) 0.6 10^3/uL (0.1-1.4); BASOPHILS % (AUTO) 0.8 % (0-2); EOSINOPHILS % (AUTO) 0.8 % (0-6); HEMATOCRIT 37.9 % (36.0-47.0); HEMOGLOBIN 12.5 g/dL (12.0-15.5); LYMPHOCYTES % (AUTO) 29.8 % (13-45); MEAN CORPUSCULAR HEMOGLOBIN 25.9 pg (27.0-33.4); MEAN CORPUSCULAR HGB CONC 32.9 g/dL (32.0-36.0); MEAN CORPUSCULAR VOLUME 79 fl (80-97); MONOCYTES % (AUTO) 6.5 % (3-13); PLATELET COUNT 270 10^3/uL (150-450); RED BLOOD COUNT 4.82 10^6/uL (3.72-5.28); RED CELL DISTRIBUTION WIDTH 15.7 % (11.5-14.0); SEGMENTED NEUTROPHILS % (AUTO) 62.1 % (42-78); TOTAL CELLS COUNTED % (AUTO) 100 %; WHITE BLOOD COUNT 9.6 10^3/uL (4.0-10.5)
[2020-05-11 02:00] LABS: APPEARANCE,URINE SLIGHTLY-CLOUDY; BILIRUBIN,URINE NEGATIVE (NEGATIVE); COLOR,URINE YELLOW; GLUCOSE, URINE NEGATIVE (NEGATIVE); KETONES,URINE NEGATIVE (NEGATIVE); LEUKOCYTE ESTERASE,URINE TRACE (NEGATIVE); NITRITE,URINE NEGATIVE (NEGATIVE); PROTEIN,URINE NEGATIVE (NEGATIVE); URINE SPECIFIC GRAVITY 1.018; UROBILINOGEN,URINE NEGATIVE mg/dL (<2.0)
[2020-05-11 02:08] LABS: ANION GAP 9 (5-19); BLOOD UREA NITROGEN 7 mg/dL (7-20); CALCIUM 9.8 mg/dL (8.4-10.2); CARBON DIOXIDE 28 mmol/L (22-30); CHLORIDE 103 mmol/L (98-107); GLUCOSE 85 mg/dL (75-110); POTASSIUM 3.9 mmol/L (3.6-5.0)
--- NOTE | 2020-05-11 02:13 | ER Document Report ---
Entered by ROBERT العلي SCRIBE 05/11/20 0127 Acting as scribe for:DOLORES VARGAS, DO ED General - General Chief Complaint: Vaginal Discharge Stated Complaint: VAGINAL DISCHARGE Time Seen by Provider: 05/10/20 23:35 Primary Care Provider: FAUSTINO DIA NP [Primary Care Provider] - Follow up as needed Information source: Patient Notes: This 24 year old female patient presents to the emergency department today with complaints of a thick white vaginal discharge that is odorous. Patient reports bilateral lower abdominal pain rated 5/10 and has not taken anything to relieve the pain. Patient states her last menstrual period was 04/21 and is sexually active with one partner. Patient states her last female wellness check-up was around November-January, with normal results. Denies dysuria or burning. Patient states she was seen in the ED recently and was given antibiotics for a UTI without improvement. TRAVEL OUTSIDE OF THE [place] IN LAST 30 DAYS: No - Related Data Allergies/Adverse Reactions: No Known Allergies Allergy (Verified 04/12/20 22:23) Home Medications: valcylador Past Medical History - General Information source: Patient - Social History Smoking Status: Never Smoker Cigarette use (# per day): No Drug Abuse: Marijuana Family History: Reviewed & Not Pertinent Patient has homicidal ideation: No Pulmonary Medical History: Reports: Hx Asthma Renal/ Medical History: Denies: Hx Peritoneal Dialysis - Immunizations Immunizations up to date: Yes Hx Diphtheria, Pertussis, Tetanus Vaccination: Yes Review of Systems - Review of Systems Constitutional: No symptoms reported EENT: No symptoms reported Cardiovascular: No symptoms reported Respiratory: No symptoms reported Gastrointestinal: See HPI, Abdominal pain Genitourinary: See HPI. denies: Burning, Dysuria Female Genitourinary: See HPI, Last menstrual period - 04/21, Vaginal discharge - white Musculoskeletal: No symptoms reported Skin: No symptoms reported Hematologic/Lymphatic: No symptoms reported Neurological/Psychological: No symptoms reported -: Yes All other systems reviewed and negative Physical Exam - Vital signs Vitals: Temp Pulse Resp BP Pulse Ox 98.3 F 70 18 124/73 100 05/10/20 21:07 05/10/20 21:07 05/10/20 21:07 05/10/20 21:07 05/10/20 21:07 - General General appearance: Appears well, Alert - HEENT Head: Normocephalic, Atraumatic Eyes: Normal Pupils: PERRL - Respiratory Respiratory status: No respiratory distress Chest status: Nontender Breath sounds: Normal Chest palpation: Normal - Cardiovascular Rhythm: Regular Heart sounds: Normal auscultation Murmur: No - Abdominal Inspection: Normal Distension: No distension Bowel sounds: Normal Notes: Tenderness with palpation to the lower abdomen. - Genitourinary External exam: Normal Speculum exam: Normal. No: Vaginal discharge Vaginal bleeding: None Bimanuel exam: Normal. No: Cervical motion tender Notes: JAMES Cr at bedside. - Extremities General upper extremity: Normal inspection, Normal ROM General lower extremity: Normal inspection, Normal ROM. No: Edema - Neurological Neuro grossly intact: Yes Cognition: Normal Orientation: AAOx4 Mad[place]ha Coma Scale Eye Opening: Spontaneous [place] Coma Scale Verbal: Oriented [place] Coma Scale Motor: Obeys Commands [place] Coma Scale Total: 15 Speech: Normal Motor strength normal: LUE, RUE, LLE, RLE Sensory: Normal - Psychological Associated symptoms: Normal affect, Normal mood - Skin Skin Temperature: Warm Skin Moisture: Dry Skin Color: Normal Course - Re-evaluation Re-evalutation: 05/11/20 02:16 MDM 24 year old female with whitish vaginal discharge and lower abd pain over past week or so. No fear reportedly for STI and Director Of Cath Lab exam is reassuring. No fever here and workup is reassuring. - Vital Signs Vital signs: Temp Pulse Resp BP Pulse Ox 98.3 F 70 18 124/73 100 05/10/20 21:07 05/10/20 21:07 05/10/20 21:07 05/10/20 21:07 05/10/20 21:07 - Laboratory Result Diagrams: 05/11/20 01:13 05/11/20 01:13 Laboratory results interpreted by me: 05/11/20 05/11/20 01:13 01:13 MCV 79 L MCH 25.9 L RDW 15.7 H Ur Leukocyte Esterase TRACE H Discharge - Discharge Clinical Impression: Bacterial vaginosis, Vaginal discharge Condition: Stable Disposition: HOME, SELF-CARE Instructions: Vaginosis, Bacterial ([facility]) Additional Instructions: Take tylenol for pain. See your doctor in follow up. Please return here for fever, abdominal pain, other problems or other concerns. Finish the antibiotic and take the diflucan after the antibiotic. Referrals: FAUSTINO DIA, BROKE BEATER [Primary Care Provider] - 05/12/20 I personally performed the services described in the documentation, reviewed and edited the documentation which was dictated to the scribe in my presence, and it accurately records my words and actions.
[2020-05-11 02:56] VITALS: BP 125/68
[2020-05-11 03:44] LABS: CHLAM PCR NOT DETECTED (NOT DETECT)
== END 2020-05-11 02:53 | disposition home or self-care (01) ==
LOC: ER 20:58
DX: N76.0 Acute vaginitis (principal); B96.89 Other specified bacterial agents as the cause of diseases classified elsewhere; R10.31 Right lower quadrant pain; R10.32 Left lower quadrant pain; Z79.899 Other long term (current) drug therapy; J45.909 Unspecified asthma, uncomplicated
CPT/HCPCS: 36415; 80048; 81001; 81025; 85025; 87491; 87591; 99282